=== PATIENT | female | born 1940 | race Caucasian/White ===

== ENCOUNTER → 2017-01-22 | Day surgery (SDC) | payer MEDICARE ==
[~2017-01-22] MED LIST: AMLO2.5T PO; AMLO5 PO; ARIC10TA PO; BUPIVACAINE/EPINEPHRINE 0.5% PF 10 ML VIAL ONE; CALC1TAB12 PO; CALC500T21 PO; CHOL20003 PO; COUM3TAB PO; COUM5TAB PO; CYAN1TAB24 PO; KETOROLAC TROMETHAMINE 30 MG/ML (IVP) VIAL IV PUSH ONE; LACTATED RINGER'S 1000 ML INJ 1,000 ML ONE; LIDOCAINE 1%/EPINEPHrine 1:100,000 SOLN 20 ML VIAL ONE; LISI-363 PO; LISI-515 PO; MEMA1TAB2 PO; METR-1 PO; MIDAZOLAM HCL 2 MG/2 ML VIAL ONE; MULT-65 PO; MULTTAB67 PO; NORC5TAB PO; OMEP20TA PO; PLAV75TA PO; PLAV75TA29 PO; PRIM50TA PO; PRIM50TA5 PO; PROPOFOL 200 MG/20 ML AMP IV ONE; SERT50 PO; TRAM50 PO; TRAM50TA PO; WARF-23 PO; ZOFR4TAB3 SL; ZOLO50TA PO; ceFAZolin 2 GM PREMIX 50 ML ONE; diphenhydrAMINE HCL 50 MG/ML VIAL ONE
--- NOTE | 2017-01-22 14:40 | TN ---
cc: SOTO FERNANDEZ M.D. DATE OF SURGERY: 01/22/2017 PREOPERATIVE DIAGNOSIS: Compression fracture of L2, subacute. POSTOPERATIVE DIAGNOSIS: Compression fracture of L2, subacute. PROCEDURE: Kyphoplasty of L2 and placement of a bone cement spacer. SURGEON: Soto Fernandez MD. ANESTHESIA: TIVA. ESTIMATED BLOOD LOSS: Minimal. INDICATIONS FOR THE PROCEDURE: This is a 76-year-old female who 5 weeks ago sustained an injury to her spine which was demonstrated as a compression fracture of L2. Investigative studies show evidence of a compression fracture at the L2 level as demonstrated on CT scan and a bone scan. She has had progressive pain and kyphotic deformity. She presents for surgical treatment. DESCRIPTION OF THE PROCEDURE IN DETAIL: The patient was brought to the operating and given limited sedation. She was rolled to a prone position on a radiolucent table. All pressure points were protected and the back was scrubbed with alcohol followed by Hibiclens followed by Chloraprep and draped sterilely. Antibiotics were given within one hour time window and a time-out was done. AP and lateral radiographic images were used to identify the L2 level and comparing to preoperative studies. A single balloon approach was utilized from the left side using the Kyphon System. Local anesthesia was utilized. A small incision was made. An awl was placed down through the pedicle and into the vertebral body at an oblique angle. A 20 mm Kyphon balloon was positioned. We had very good correction of the deformity. On the back table, methacrylate was mixed and after approximately 12 minutes it was injected. We could not proceed with any extravasation. The cement was allowed to harden. The tubes were removed. Intraoperative x-rays were obtained. The wound was irrigated, anesthetized and closed with 4-0 Vicryl followed by Dermabond. The patient was awakened and taken to the recovery room in satisfactory condition. Soto Fernandez MD [facility] [place] /2:26 PM /2:35 PM
== END | disposition home or self-care (01) ==
LOC: ESDC 11:09
PROVIDERS: ATTEND Orthopaedic Surgery Orthopaedic Surgery of the Spine
DX: S32.020A Wedge compression fracture of second lumbar vertebra, initial encounter for closed fracture (principal)
CPT/HCPCS: 01936; 22514; 72100; J0690; J1200; J1885; J2250; J3010; J7120

== ENCOUNTER 2017-02-13 08:49 | Emergency (ER) | payer MEDICARE ==
[~2017-02-13] VITALS: Ht 167.6 cm; Wt 80.0 kg
[~2017-02-13 08:49] MED LIST changes: -AMLO5 PO; -BUPIVACAINE/EPINEPHRINE 0.5% PF 10 ML VIAL ONE; -CALC1TAB12 PO; -CHOL20003 PO; -COUM3TAB PO; -COUM5TAB PO; -CYAN1TAB24 PO; -KETOROLAC TROMETHAMINE 30 MG/ML (IVP) VIAL IV PUSH ONE; -LACTATED RINGER'S 1000 ML INJ 1,000 ML ONE; -LIDOCAINE 1%/EPINEPHrine 1:100,000 SOLN 20 ML VIAL ONE; -LISI-515 PO; -MEMA1TAB2 PO; -METR-1 PO; -MIDAZOLAM HCL 2 MG/2 ML VIAL ONE; -MULTTAB67 PO; -NORC5TAB PO; -PLAV75TA29 PO; -PRIM50TA5 PO; -PROPOFOL 200 MG/20 ML AMP IV ONE; -TRAM50TA PO; -WARF-23 PO; -ZOFR4TAB3 SL; -ZOLO50TA PO; -ceFAZolin 2 GM PREMIX 50 ML ONE; -diphenhydrAMINE HCL 50 MG/ML VIAL ONE
[2017-02-13 08:54] VITALS: BP 200/118; PULSE 104; RESP 18; TEMP 98.2; O2SAT 95
[2017-02-13 09:15] VITALS: BP 205/93; PULSE 79; RESP 18; O2SAT 100
[2017-02-13] MEDS ORDERED: MULTTAB67 PO (09:19)
[2017-02-13] MEDS ORDERED: ZOLO50TA PO (09:19)
[2017-02-13] MEDS ORDERED: OMEP20TA PO (09:19)
[2017-02-13] MEDS ORDERED: AMLO2.5T PO (09:19)
[2017-02-13] MEDS ORDERED: CALC1TAB12 PO (09:19)
[2017-02-13] MEDS ORDERED: PRIM50TA5 PO (09:19)
[2017-02-13] MEDS ORDERED: LISI-515 PO (09:19)
[2017-02-13] MEDS ORDERED: PLAV75TA29 PO (09:19)
[2017-02-13] MEDS ORDERED: ARIC10TA PO (09:19)
[2017-02-13] MEDS ORDERED: TRAM50TA PO (09:19)
[2017-02-13] MEDS ORDERED: ONDANSETRON HCL 4 MG/2 ML VIAL IV ONE (09:45)
[2017-02-13] MEDS ORDERED: HYDROmorphone HCL PF 1 MG/ML VIAL IVS ONE (09:45)
[2017-02-13 10:11] LABS: AUTOMATED NEUTROPHIL # 6.7 TH/MM3 (1.8-7.7); BASOPHIL % 0.5 % (0.0-2.0); EOSINOPHIL # 0.1 TH/MM3 (0-0.4); EOSINOPHIL % 1.7 % (0.0-4.0); HEMATOCRIT 38.6 % (35.0-46.0); HEMO FLAGS DIFF FINAL; LYMPH % 8.7 % (9.0-44.0); LYMPHOCYTE # 0.7 TH/MM3 (1.0-4.8); MEAN CELL VOLUME 80.5 FL (80.0-100.0); MEAN CORPUSCULAR HEMOGLOBIN 26.8 PG (27.0-34.0); MEAN CORPUSCULAR HGB CONC 33.3 % (32.0-36.0); MONO % 4.8 % (0.0-8.0); NEUT % 84.3 % (16.0-70.0); PLATELET COUNT 270 TH/MM3 (150-450); RED BLOOD COUNT 4.79 MIL/MM3 (4.00-5.30); RED CELL DISTRIBUTION WIDTH 16.5 % (11.6-17.2); WHITE BLOOD COUNT 7.9 TH/MM3 (4.0-11.0)
--- NOTE | 2017-02-13 10:15 | PD ---
HPI Chief Complaint: Pain: Acute or Chronic Time Seen by Provider: 09:37 Travel History International Travel<30 days: No Contact w/Intl Traveler<30days: No Traveled to known affect area: No History of Present Illness HPI This patient has had daily chronic low midline back pain for 8 weeks now. She fell then and developed L2 compression fracture. 3 weeks ago she had kyphoplasty done. She says that didn't help the pain at all and she has chronic daily pain. She called the paramedics who brought her in today. She received 10 mg IV morphine in route and still is not relieving her pain. She denies fever or acute injury. No radiation of pain down the legs. No muscle weakness or sensory loss. She has chronic bladder incontinence but no retention issues. Pain is severe. Duration 8 weeks. No alleviating factors. She says that hydrocodone and tramadol she takes at home doesn't help. She saw her orthopedist 2 weeks ago which was one week after surgery. PFSH Past Medical History Hx Anticoagulant Therapy: Yes (PLAVIX ) Arthritis: Yes Asthma: No Atrial Fibrillation: Yes Autoimmune Disease: No Blood Disorders: No Anxiety: Yes Depression: Yes Heart Rhythm Problems: Yes (OCCASIONAL PALPITATIONS) Cancer: No Cardiac Catheterization: Yes Cardiovascular Problems: Yes (HTN , A-FIB ) High Cholesterol: Yes Chest Pain: Yes Congestive Heart Failure: No COPD: No Cerebrovascular Accident: Yes Coronary Artery Disease: Yes Diabetes: No Diminished Hearing: No Endocrine: No Gastrointestinal Disorders: Yes (barretts esophagus) GERD: Yes Glaucoma: No Genitourinary: No Headaches: Yes Hepatitis: No Hiatal Hernia: Yes Hypertension: Yes Immune Disorder: No Kidney Stones: No Musculoskeletal: Yes (CHRONIC BACK PAIN ) Neurologic: No Psychiatric: Yes Reproductive: No Respiratory: No Myocardial Infarction: Yes ([place] 09/1991) Renal Failure: No Seizures: No Sleep Apnea: Yes (OCCASIONAL) Thyroid Disease: No Ulcer: No Tetanus Vaccination: Unknown Influenza Vaccination: Yes ?: Not Menopausal: Yes : 3 Para: 3 Past Surgical History Abdominal Surgery: Yes AICD: No Appendectomy: Yes Body Medical Devices: cardiac stents Cardiac Surgery: Yes (bypass) Cholecystectomy: No Coronary Artery Bypass Graft: Yes (X1 1989) Coronary Stent: Yes (X 3) Ear Surgery: No Endocrine Surgery: No Eye Surgery: Yes (CATARACT ) Genitourinary Surgery: No Gynecologic Surgery: No Joint Replacement: Yes (BILATERAL KNEE/hip) Neurologic Surgery: Yes (L1-L2 SURGERY ) Oral Surgery: No Pacemaker: No Thoracic Surgery: No Tonsillectomy: Yes Other Surgery: Yes Social History Alcohol Use: No Tobacco Use: No Substance Use: No Allergies-Medications (Allergen,Severity, Reaction): Coded Allergies: Contrast Media (Verified Allergy, Severe, HIVES ,CLOSE UP THROAT, 02/13/17) Hydrocodone (Verified Allergy, Severe, N/V, 02/13/17) Iohexol (OMNIPAQUE) (Verified Allergy, Severe, pt needs premeds, 02/13/17) Percocet (Verified Allergy, Severe, 02/13/17) Sulfa (Verified Allergy, Severe, CHILLS-ABD PAIN, 02/13/17) Vicodin (Verified Allergy, Severe, N/V, 02/13/17) Reported Meds & Prescriptions Reported Meds & Active Scripts Active Calcium 500+D (Calcium/Vitamin D) 500 + Tab 500 + PO DAILY 30 Days Ultram (Tramadol HCl) 50 Mg Tab 50 Mg PO Q4H PRN Review of Systems General / Constitutional: No: Fever Eyes: No: Visual changes HENT: No: Headaches Cardiovascular: No: Chest Pain or Discomfort Respiratory: No: Shortness of Breath Gastrointestinal: No: Abdominal Pain Genitourinary: No: Dysuria Musculoskeletal: Positive: Pain Skin: No Rash Neurologic: No: Weakness Psychiatric: No: Depression Endocrine: No: Polydipsia Hematologic/Lymphatic: No: Easy Bruising Physical Exam Narrative GENERAL: Well-nourished, well-developed patient with back pain . SKIN: Focused skin assessment reveals no rash and nodules. Skin is Warm and dry. HEAD: Atraumatic. Normocephalic. EYES: Pupils equal and round. No scleral icterus. No injection or drainage. ENT: No nasal bleeding or discharge. Mucous membranes pink and moist. NECK: Trachea midline. No JVD. CARDIOVASCULAR: Regular rate and rhythm. No murmur appreciated. RESPIRATORY: No accessory muscle use. Clear to auscultation. Breath sounds equal bilaterally. GASTROINTESTINAL: Abdomen soft, non-tender, nondistended. Hepatic and splenic margins not palpable. MUSCULOSKELETAL: No obvious deformities. No clubbing. No cyanosis. No edema. I don't see any redness or swelling or bruising or muscle spasm on back exam. NEUROLOGICAL: Awake and alert. No obvious cranial nerve deficits. Motor grossly within normal limits. Normal speech. PSYCHIATRIC: Appropriate mood and affect; insight and judgment normal. Data Data Last Documented VS Vital Signs Date Time Temp Pulse Resp B/P Pulse Ox O2 Delivery O2 Flow Rate FiO2 02/13/17 09:15 79 18 205/93 100 Nasal Cannula 2 02/13/17 08:54 98.2 Orders Electrocardiogram (02/13/17 ) Iv Access Insert/Monitor (02/13/17 09:37) Complete Blood Count With Diff (02/13/17 09:37) Basic Metabolic Panel (Bmp) (02/13/17 09:37) Spine, Lumbar - Ltd (Ap & Lat) (02/13/17 ) Ondansetron Inj (Zofran Inj) (02/13/17 09:45) Hydromorphone Pf Inj (Dilaudid Pf Inj) (02/13/17 09:45) Labs Laboratory Tests Test 02/13/17 09:50 White Blood Count 7.9 TH/MM3 Red Blood Count 4.79 MIL/MM3 Hemoglobin 12.9 GM/DL Hematocrit 38.6 % Mean Corpuscular Volume 80.5 FL Mean Corpuscular Hemoglobin 26.8 PG Mean Corpuscular Hemoglobin 33.3 % Concent Red Cell Distribution Width 16.5 % Platelet Count 270 TH/MM3 Mean Platelet Volume 9.1 FL Neutrophils (%) (Auto) 84.3 % Lymphocytes (%) (Auto) 8.7 % Monocytes (%) (Auto) 4.8 % Eosinophils (%) (Auto) 1.7 % Basophils (%) (Auto) 0.5 % Neutrophils # (Auto) 6.7 TH/MM3 Lymphocytes # (Auto) 0.7 TH/MM3 Monocytes # (Auto) 0.4 TH/MM3 Eosinophils # (Auto) 0.1 TH/MM3 Basophils # (Auto) 0.0 TH/MM3 CBC Comment DIFF FINAL Differential Comment Sodium Level 136 MEQ/L Potassium Level 3.7 MEQ/L Chloride Level 99 MEQ/L Carbon Dioxide Level 28.5 MEQ/L Anion Gap 9 MEQ/L Blood Urea Nitrogen 9 MG/DL Creatinine 0.67 MG/DL Estimat Glomerular Filtration 85 ML/MIN Rate Random Glucose 99 MG/DL Calcium Level 9.2 MG/DL MDM Medical Decision Making Medical Screen Exam Complete: Yes Emergency Medical Condition: Yes Medical Record Reviewed: Yes Differential Diagnosis Post surgical pain, chronic pain, compression fracture Narrative Course I have reviewed the patient's electronic medical record. Reviewed her kyphoplasty note from 3 weeks ago. IV placed CBC is normal Metabolic profile is normal I reviewed her lumbar spine x-rays which show kyphoplasty at L2 and L1 compression fracture I don't see a neurologic deficit She is very hypertensive but is complaining of pain and did not take her antihypertensives today I gave her 1 mg IV Dilaudid and 4 g IV Zofran for symptom relief On recheck she feels improved. She is ambulatory here in the department Stable for outpatient follow-up with her primary physician and orthopedist Diagnosis Primary Impression: Compression fracture of L1 lumbar vertebra Qualified Code: S32.010A - Compression fracture of L1 lumbar vertebra, closed , initial encounter Additional Impression: Compression fracture of L2 lumbar vertebra Qualified Code: S32.020D - Compression fracture of L2 lumbar vertebra, with routine healing, subsequent encounter Additional Instructions: The patient was advised to follow up with their primary physician and orthopedist and return if they worsen. Med/Other Pt SpecificInfo: Other Disposition: 01 DISCHARGE HOME Condition: Stable Oliver Vega MD Feb 13, 2017 10:15
[2017-02-13 10:34] LABS: BICARBONATE 28.5 MEQ/L (21.0-32.0); POTASSIUM 3.7 MEQ/L (3.5-5.1)
--- NOTE | 2017-02-13 10:45 | RADRPT ---
EXAM DATE/TIME: 02/13/2017 10:16 [facility] COMPARISON: [facility] (AP & LAT), January 22, 2017, 12:10. INDICATIONS : Complains of back pain. MEDICAL HISTORY : None. SURGICAL HISTORY : Kyphoplasty. ENCOUNTER: Initial ACUITY: 1 month PAIN SCORE: 10/10 LOCATION: [facility] FINDINGS: There is evidence for prior vertebroplasty of L2. There is anterior wedging of L1 by approximately 43 % and bony structures are osteopenic. Degenerative changes are present to a significant degree at L5- S1. Chronic atherosclerotic calcifications are seen without any definite aneurysmal dilatations for t echnique. CONCLUSION: Anterior wedging of L1 and prior vertebroplasty of L2. KYoli Grimaldo MD on February 13, 2017 at 10:41 Board Certified Radiologist. This report was verified electronically.
--- NOTE | 2017-02-13 14:10 | EKG ---
Date Performed: 02/13/2017 Time Performed: 09:07:25 PTAGE: 76 years EKG: ATRIAL FIBRILLATION WITH CONTROLLED VENTRICULAR RESPONSE POOR INITIAL ANTERIOR FORCES IN V1 AND V2 WHICH IS PROBABLY NORMAL VARIANT Compared to previous tracing, atrial fibrillation is new. T he loss of R force in V2 compared to the previous tracing may be positional. ABNORMAL ECG PREVIOUS TRACING : 04/29/2016 20.40 DOCTOR: Ramon Schmidt Interpretating Date/Time 02/13/2017 14:08:24
[2017-03-12] MEDS ORDERED: CHOL20003 PO (09:50)
[2017-03-12] MEDS ORDERED: MEMA1TAB2 PO (09:50)
[2017-03-12] MEDS ORDERED: COUM5TAB PO (09:50)
[2017-03-12] MEDS ORDERED: CYAN1TAB24 PO (09:50)
== END 2017-02-13 12:12 | disposition home or self-care (01) ==
LOC: NEPC 08:49
DX: S32.010A Wedge compression fracture of first lumbar vertebra, initial encounter for closed fracture (principal); S32.020D Wedge compression fracture of second lumbar vertebra, subsequent encounter for fracture with routine healing; I48.91 Unspecified atrial fibrillation; I10 Essential (primary) hypertension; I25.10 Atherosclerotic heart disease of native coronary artery without angina pectoris; I25.2 Old myocardial infarction; Z98.890 Other specified postprocedural states; Z79.01 Long term (current) use of anticoagulants; Z86.73 Personal history of transient ischemic attack (TIA), and cerebral infarction without residual deficits; Z95.5 Presence of coronary angioplasty implant and graft
CPT/HCPCS: 72100; 80048; 85025; 93005; 96374; 96375; 99284; J1170; J2405

== ENCOUNTER → 2017-02-19 | Day surgery (SDC) | payer MEDICARE ==
[~2017-02-19] MED LIST changes: +AMLO5 PO; +CALC1TAB12 PO; -CALC500T21 PO; +CHOL20003 PO; +COUM3TAB PO; +COUM5TAB PO; +CYAN1TAB24 PO; -LISI-363 PO; +LISI-515 PO; +MEMA1TAB2 PO; +METR-1 PO; -MULT-65 PO; +MULTTAB67 PO; +NORC5TAB PO; -PLAV75TA PO; +PLAV75TA29 PO; -PRIM50TA PO; +PRIM50TA5 PO; -SERT50 PO; -TRAM50 PO; +TRAM50TA PO; +WARF-23 PO; +ZOFR4TAB3 SL; +ZOLO50TA PO
== END | disposition home or self-care (01) ==
LOC: ESDC 11:10
PROVIDERS: ATTEND Orthopaedic Surgery Orthopaedic Surgery of the Spine
DX: S32.010A Wedge compression fracture of first lumbar vertebra, initial encounter for closed fracture (principal); Z53.09 Procedure and treatment not carried out because of other contraindication; I48.91 Unspecified atrial fibrillation
CPT/HCPCS: 93005; G0463; 99211

== ENCOUNTER → 2017-02-26 | Day surgery (SDC) | payer MEDICARE ==
[~2017-02-26] MED LIST changes: +ACETAMINOPHEN/HYDROcodone 325 MG/5 MG TAB ONE; +BUPIVACAINE/EPINEPHRINE 0.5% PF 10 ML VIAL ONE; +KETOROLAC TROMETHAMINE 30 MG/ML (IVP) VIAL IV PUSH ONE; +LACTATED RINGER'S 1000 ML INJ 1,000 ML ONE; +LIDOCAINE 1%/EPINEPHrine 1:100,000 SOLN 20 ML VIAL ONE; +MIDAZOLAM HCL 2 MG/2 ML VIAL ONE; +PROPOFOL 200 MG/20 ML AMP IV ONE; +ceFAZolin 2 GM PREMIX 50 ML ONE
--- NOTE | 2017-02-26 14:13 | TN ---
cc: SOTO FERNANDEZ DATE OF SURGERY: 02/26/2017. PREOPERATIVE DIAGNOSIS: Compression fracture of L1. POSTOPERATIVE DIAGNOSIS: Compression fracture of L1. OPERATIVE PROCEDURE PERFORMED: Kyphoplasty of L1 and placement of bone cement spacer. SURGEON: Soto Fernandez MD. ANESTHESIA: TIVA. ESTIMATED BLOOD LOSS: Minimal. INDICATIONS FOR THE PROCEDURE: This patient is a 76-year-old female who has had a previous kyphoplasty at the L2 level and did very well. The patient developed increasing pain and studies showed evidence of a compression fracture developing at L1. The previous study showed evidence of only an acute fracture at the L2 level but now that she developed a fracture at that level she has had three weeks of conservative care and it is very painful. She presents now for surgical treatment. DESCRIPTION OF THE PROCEDURE IN DETAIL: The patient was brought to the operating room and given limited sedation. She was rolled to a prone position on a radiolucent table. All pressure points were checked. The back was scrubbed alcohol followed by Hibiclens followed Chloraprep and draped sterilely. Antibiotics were given within one hour time window and a time-out was done. AP and lateral radiographic images were used identifying the L1 level and compared to preoperative studies. A single balloon approach was utilized from the left side using the Kyphon system. Local anesthesia was utilized. A small incision was made with an awl placed down through the pedicle and into vertebral body at an oblique angle. A 20 mm Kyphon balloon was inflated. We had good correction of the deformity overall. On the back table, methyl methacrylate was mixed and after approximately 11 minutes was injected. We had minimal extravasation posteriorly. The cementing was stopped at that time. The cement was allowed to harden. The tubes were removed. Intraoperative x-rays were obtained. The wound was irrigated, anesthetized and closed with 4-0 Vicryl followed by Dermabond. The patient was awakened and taken to the recovery room in satisfactory condition. Soto Fernandez MD [facility] [place] /1:50 PM /1:59 PM
== END | disposition home or self-care (01) ==
LOC: ESDC 11:36
PROVIDERS: ATTEND Orthopaedic Surgery Orthopaedic Surgery of the Spine
DX: S32.010A Wedge compression fracture of first lumbar vertebra, initial encounter for closed fracture (principal)
CPT/HCPCS: 01936; 22514; 72100; J0690; J1885; J2250; J3010; J7120

== ENCOUNTER 2017-03-13 11:45 | Inpatient (IN) | payer MEDICARE ==
[~2017-03-13] VITALS: Ht 167.6 cm; Wt 65.0 kg
[2017-03-13] VITALS (7 sets, daily range): BP systolic 161–198; BP diastolic 72–89; PULSE 73–93; RESP 16–18; TEMP 97.6–100; O2SAT 95–100
[~2017-03-13 11:45] MED LIST changes: -ACETAMINOPHEN/HYDROcodone 325 MG/5 MG TAB ONE; -AMLO5 PO; -BUPIVACAINE/EPINEPHRINE 0.5% PF 10 ML VIAL ONE; -COUM3TAB PO; -KETOROLAC TROMETHAMINE 30 MG/ML (IVP) VIAL IV PUSH ONE; -LACTATED RINGER'S 1000 ML INJ 1,000 ML ONE; -LIDOCAINE 1%/EPINEPHrine 1:100,000 SOLN 20 ML VIAL ONE; -METR-1 PO; -MIDAZOLAM HCL 2 MG/2 ML VIAL ONE; -NORC5TAB PO; -PLAV75TA29 PO; -PROPOFOL 200 MG/20 ML AMP IV ONE; -TRAM50TA PO; -WARF-23 PO; -ZOFR4TAB3 SL; -ceFAZolin 2 GM PREMIX 50 ML ONE
[2017-03-13] MEDS ORDERED: MORPHINE SULFATE 4 MG/ML INJ IV PUSH ONE ×3 (12:45→17:45)
[2017-03-13] MEDS ORDERED: ONDANSETRON HCL 4 MG/2 ML VIAL IVP ONE (12:45)
[2017-03-13] MEDS ORDERED: SODIUM CHLORIDE 0.9% FLUSH 10 ML FLUSH IV FLUSH PRN ×2 (12:45→14:45)
[2017-03-13] MEDS ORDERED: SODIUM CHLOR 0.9% 1000 ML INJ 1,000 ML IV SCH (12:45)
[2017-03-13] MEDS ORDERED: WARF-23 PO (12:48)
--- NOTE | 2017-03-13 12:52 | PD ---
HPI Chief Complaint: Abdominal Pain Time Seen by Provider: 12:41 Travel History International Travel<30 days: No Contact w/Intl Traveler<30days: No Traveled to known affect area: No History of Present Illness HPI 76-year-old female here by private vehicle with for evaluation of lower abdominal pain and diarrhea. Symptoms started yesterday evening with lower abdominal pain that the patient describes as sharp. She reports having 3 episodes of was bowel movements since then. For the last 3 days the patient has had decreased appetite and has had nothing to eat, only drinking water. She has not vomited. History of appendectomy. No other abdominal surgeries. No urinary symptoms. Recent history of L1 compression fracture with kyphoplasty on 02/26/17. PFSH Past Medical History Hx Anticoagulant Therapy: Yes (coumadin) Arthritis: Yes Asthma: No Atrial Fibrillation: Yes Autoimmune Disease: No Blood Disorders: No Anxiety: Yes Depression: Yes Heart Rhythm Problems: Yes (OCCASIONAL PALPITATIONS AFIB) Cancer: No Cardiac Catheterization: Yes Cardiovascular Problems: Yes (htn on meds, [place] with 3 stents) High Cholesterol: Yes Chest Pain: Yes Congestive Heart Failure: No COPD: No Cerebrovascular Accident: Yes (cva) Coronary Artery Disease: Yes Diabetes: No Diminished Hearing: No Endocrine: No Gastrointestinal Disorders: Yes (barretts esophagus) GERD: Yes Glaucoma: No Genitourinary: No Headaches: Yes Hepatitis: No Hiatal Hernia: Yes Herniated Disk: Yes Hypertension: Yes Immune Disorder: No Kidney Stones: No Musculoskeletal: Yes (CHRONIC BACK PAIN ) Neurologic: No Psychiatric: Yes Reproductive: No Respiratory: No Immunizations Current: Yes Myocardial Infarction: Yes ([place] 09/1991) Renal Failure: No Seizures: No Sleep Apnea: Yes (OCCASIONAL) Thyroid Disease: No Ulcer: No Tetanus Vaccination: < 5 Years Influenza Vaccination: Yes ?: Not Menopausal: Yes : 3 Para: 3 Past Surgical History Abdominal Surgery: Yes AICD: No Appendectomy: Yes Body Medical Devices: cardiac stents Cardiac Surgery: Yes (bypass) Cholecystectomy: No Coronary Artery Bypass Graft: Yes (X1 1989) Coronary Stent: Yes (X 3) Ear Surgery: No Endocrine Surgery: No Eye Surgery: Yes (CATARACT ) Genitourinary Surgery: No Gynecologic Surgery: No Joint Replacement: Yes (BILATERAL KNEE/hip) Neurologic Surgery: Yes (L1-L2 SURGERY ) Oral Surgery: No Pacemaker: No Thoracic Surgery: No Tonsillectomy: Yes Other Surgery: Yes Social History Alcohol Use: No Tobacco Use: No Substance Use: No Allergies-Medications (Allergen,Severity, Reaction): Coded Allergies: Contrast Media (Verified Allergy, Severe, HIVES ,CLOSE UP THROAT, 03/13/17) Hydrocodone (Verified Allergy, Severe, N/V, 03/13/17) Iohexol (OMNIPAQUE) (Verified Allergy, Severe, pt needs premeds, 03/13/17) Percocet (Verified Allergy, Severe, 03/13/17) Sulfa (Verified Allergy, Severe, CHILLS-ABD PAIN, 03/13/17) Vicodin (Verified Allergy, Severe, N/V, 03/13/17) Reported Meds & Prescriptions Reported Meds & Active Scripts Active Reported Warfarin 5 Mg Tab 5 Mg PO DAILY D3 (Cholecalciferol) 2,000 Unit Cap 1 Cap PO DAILY B12 (Cyanocobalamin) 1,000 Mcg Tab Unknown Dose PO DAILY Memantine 10 Mg Tab 40 Mg PO DAILY Aricept (Donepezil) 10 Mg Tab 10 Mg PO HS Amlodipine (Amlodipine Besylate) 2.5 Mg Tab 5 Mg PO BID Calcium 500 +D (Calcium Carbonate-Cholecalciferol) 500-400 Mg-Unit Tab 1 Tab PO BID Lisinopril 20 Mg Tab 20 Mg PO BID Primidone 50 Mg Tab 50 Mg PO BID Omeprazole 20 Mg Tab 20 Mg PO DAILY Zoloft (Sertraline HCl) 50 Mg Tab 50 Mg PO BID Multiple Vitamin 1 Tab 1 Tab PO DAILY Review of Systems Except as stated in HPI: all other systems reviewed are Neg Physical Exam Narrative GENERAL: Well-developed, well-nourished, comfortable, no acute distress. SKIN: Focused skin assessment warm/dry. No rash. HEAD: Atraumatic. Normocephalic. EYES: Pupils equal and round. No scleral icterus. No injection or drainage. ENT: Mucous membranes pink and moist. NECK: Trachea midline. No JVD. CARDIOVASCULAR: Regular rate and rhythm. RESPIRATORY: No accessory muscle use. Clear to auscultation. Breath sounds equal bilaterally. GASTROINTESTINAL: Abdomen soft, nondistended. Mild suprapubic tenderness without peritoneal signs. Rest of abdomen is mildly tender. No rebound or guarding. Normal bowel sounds. No hernias. MUSCULOSKELETAL: No obvious deformities. No clubbing. No cyanosis. No edema. NEUROLOGICAL: Awake and alert. No obvious cranial nerve deficits. Motor grossly within normal limits. Normal speech. PSYCHIATRIC: Appropriate mood and affect; insight and judgment normal. Data Data Last Documented VS Vital Signs Date Time Temp Pulse Resp B/P Pulse Ox O2 Delivery O2 Flow Rate FiO2 03/13/17 14:32 81 18 198/85 97 Room Air 03/13/17 12:00 97.6 Orders Complete Blood Count With Diff (03/13/17 12:45) Comprehensive Metabolic Panel (03/13/17 12:45) Lipase (03/13/17 12:45) Prothrombin Time / Inr (Pt) (03/13/17 12:45) Act Partial Throm Time (Ptt) (03/13/17 12:45) Urinalysis - C+S If Indicated (03/13/17 12:45) Ct Abd/Pel W/O Iv Contrast (03/13/17 12:45) Iv Access Insert/Monitor (03/13/17 12:45) Ecg Monitoring (03/13/17 12:45) Oximetry (03/13/17 12:45) Ondansetron Inj (Zofran Inj) (03/13/17 12:45) Sodium Chlor 0.9% 1000 Ml Inj (Ns 1000 M (03/13/17 12:45) Sodium Chloride 0.9% Flush (Ns Flush) (03/13/17 12:45) Morphine Inj (Morphine Inj) (03/13/17 12:45) Cath For Specimen (03/13/17 12:49) Lactic Acid (03/13/17 13:32) C Diff Toxin Pcr (03/13/17 13:32) Urine Culture (03/13/17 13:10) Ceftriaxone Inj (Rocephin Inj) (03/13/17 13:45) Morphine Inj (Morphine Inj) (03/13/17 14:45) Ciprofloxacin 400 Mg Premix (Cipro 400 M (03/13/17 14:45) Metronidazole 500 Mg Inj (Flagyl 500 Mg (03/13/17 14:45) Potassium Chlor 20 Meq Premix (Kcl 20 Me (03/13/17 14:45) Labs Laboratory Tests Test 03/13/17 03/13/17 03/13/17 12:10 13:10 13:57 White Blood Count 22.3 TH/MM3 Red Blood Count 5.54 MIL/MM3 Hemoglobin 14.4 GM/DL Hematocrit 44.5 % Mean Corpuscular Volume 80.4 FL Mean Corpuscular Hemoglobin 26.1 PG Mean Corpuscular Hemoglobin 32.5 % Concent Red Cell Distribution Width 18.5 % Platelet Count 266 TH/MM3 Mean Platelet Volume 9.4 FL Neutrophils (%) (Auto) 92.3 % Lymphocytes (%) (Auto) 4.9 % Monocytes (%) (Auto) 2.6 % Eosinophils (%) (Auto) 0.1 % Basophils (%) (Auto) 0.1 % Neutrophils # (Auto) 20.6 TH/MM3 Lymphocytes # (Auto) 1.1 TH/MM3 Monocytes # (Auto) 0.6 TH/MM3 Eosinophils # (Auto) 0.0 TH/MM3 Basophils # (Auto) 0.0 TH/MM3 CBC Comment DIFF FINAL Differential Comment Prothrombin Time 64.3 SEC Prothromb Time International 5.4 RATIO Ratio Activated Partial 36.5 SEC Thromboplast Time Sodium Level 138 MEQ/L Potassium Level 2.9 MEQ/L Chloride Level 98 MEQ/L Carbon Dioxide Level 25.4 MEQ/L Anion Gap 15 MEQ/L Blood Urea Nitrogen 18 MG/DL Creatinine 1.00 MG/DL Estimat Glomerular Filtration 54 ML/MIN Rate Random Glucose 118 MG/DL Calcium Level 9.8 MG/DL Total Bilirubin 0.5 MG/DL Aspartate Amino Transf 19 U/L (AST/SGOT) Alanine Aminotransferase 18 U/L (ALT/SGPT) Alkaline Phosphatase 135 U/L Total Protein 7.9 GM/DL Albumin 3.7 GM/DL Lipase 85 U/L Urine Collection Type CATH Urine Color DARK-YELLOW Urine Turbidity CLOUDY Urine pH 5.5 Urine Specific Aline 1.024 Urine Protein 100 mg/dL Urine Glucose (UA) NEG mg/dL Urine Ketones 15 mg/dL Urine Occult Blood NEG Urine Nitrite POS Urine Bilirubin NEG Urine Leukocyte Esterase SMALL Urine WBC 20-24 /hpf Urine Squamous Epithelial 0-5 /hpf Cells Urine Bacteria MANY /hpf Urine Hyaline Casts 0-2 /lpf Microscopic Urinalysis Comment CULTURE INDICATED Lactic Acid Level 1.3 mmol/L MDM Medical Decision Making Medical Screen Exam Complete: Yes Emergency Medical Condition: Yes Differential Diagnosis Colitis, diverticulitis, UTI, cystitis, mesenteric ischemia Narrative Course Initial vital signs show heart rate 93, blood pressure 176/86, pulse ox 95% on room air, oral temp of 97.6F. CBC shows WBC 22.3, hemoglobin 14.4, hematocrit 44.3, platelets 266, neutrophils 92.3%. CMP is remarkable for potassium 2.9, otherwise essentially unremarkable. Lactic acid is 1.3. UA suggestive of UTI. CT abdomen pelvis: CONCLUSION: 1. Diverticulosis of the sigmoid colon with wall thickening suggestive of mild diverticulitis. 2. Cholelithiasis. 3. No renal calculi or hydronephrosis. Patient and the patient's significant other were made aware of all findings. She was given a dose of Rocephin after her UA resulted. She was started on Cipro and Flagyl after her CT abdomen pelvis resulted. She is still complaining of abdominal pain and was given a second dose of morphine. There are no peritoneal signs on exam. Also potassium has been ordered parenterally. Given ongoing pain, age, and hypokalemia, the patient will be admitted for further treatment and evaluation of acute diverticulitis. Case discussed with hospitalist Dr. Herron who will admit the patient to his service. Diagnosis Primary Impression: Acute diverticulitis Additional Impressions: UTI (urinary tract infection) Qualified Code: N39.0 - Urinary tract infection with hematuria, site unspecified Hypokalemia Intractable abdominal pain Scooter Ricardo MD March 13, 2017 12:52
[2017-03-13 12:56] LABS: AUTOMATED NEUTROPHIL # 20.6 TH/MM3 (1.8-7.7); BASOPHIL % 0.1 % (0.0-2.0); EOSINOPHIL % 0.1 % (0.0-4.0); HEMATOCRIT 44.5 % (35.0-46.0); LYMPH % 4.9 % (9.0-44.0); LYMPHOCYTE # 1.1 TH/MM3 (1.0-4.8); MEAN CELL VOLUME 80.4 FL (80.0-100.0); MEAN CORPUSCULAR HEMOGLOBIN 26.1 PG (27.0-34.0); MEAN CORPUSCULAR HGB CONC 32.5 % (32.0-36.0); MONO % 2.6 % (0.0-8.0); NEUT % 92.3 % (16.0-70.0); PLATELET COUNT 266 TH/MM3 (150-450); RED BLOOD COUNT 5.54 MIL/MM3 (4.00-5.30); RED CELL DISTRIBUTION WIDTH 18.5 % (11.6-17.2); WHITE BLOOD COUNT 22.3 TH/MM3 (4.0-11.0)
[2017-03-13 13:01] LABS: HEMO FLAGS DIFF FINAL
[2017-03-13 13:10] LABS: APTT (PATIENT) 36.5 SEC (24.3-30.1); INTERNATIONAL NORMALIZED RATIO 5.4 RATIO; PROTHROMBIN TIME - PATIENT 64.3 SEC (9.8-11.6)
[2017-03-13 13:17] LABS: ALKALINE PHOSPHATASE 135 U/L (45-117); ALT (GPT) 18 U/L (10-53); ANION GAP 15 MEQ/L (5-15); AST (GOT) 19 U/L (15-37); BICARBONATE 25.4 MEQ/L (21.0-32.0); BLOOD UREA NITROGEN 18 MG/DL (7-18); CHLORIDE 98 MEQ/L (98-107); GLOMERULAR FILTRATION RATE 54 ML/MIN (>89); SODIUM (NA) 138 MEQ/L (136-145); TOTAL BILIRUBIN ADULT 0.5 MG/DL (0.2-1.0)
[2017-03-13 13:19] LABS: POTASSIUM 2.9 MEQ/L (3.5-5.1)
[2017-03-13 13:28] LABS: BLOOD, URINE NEG (NEG); GLUCOSE,URINE NEG (NEG); KETONE, URINE 15 mg/dL (NEG); PH, URINE 5.5 (5.0-8.5)
[2017-03-13 13:33] LABS: NITRITE,URINE POS (NEG)
[2017-03-13 13:34] LABS: METHOD OF COLLECTION CATH; URINE COLOR DARK-YELLOW (YELLW/STRAW)
[2017-03-13 13:35] LABS: BACTERIA, URINE MANY /hpf
[2017-03-13 13:36] LABS: COMMENT (UR) CULTURE INDICATED; CULTURE IF INDICATED CULTURE INDICATED; HYALINE CAST, URINE 0-2 /lpf (RARE); SQUAMOUS EPITHELIAL CELL URINE 0-5 /hpf (0-5)
[2017-03-13] MEDS ORDERED: cefTRIAXone INJ 1,000 MG in SODIUM CHLORIDE 0.9% INJ 100 ML IV ONE (13:45)
--- NOTE | 2017-03-13 14:31 | RADHPO ---
EXAM DATE/TIME: 03/13/2017 14:06 [facility] COMPARISON: No previous studies available for comparison. INDICATIONS : Back pain. ORAL CONTRAST: No oral contrast ingested. RADIATION DOSE: 5.46 CTDIvol (mGy) MEDICAL HISTORY : Cardiovascular disease. Hernia, hiatal. SURGICAL HISTORY : Appendectomy. ENCOUNTER: Initial ACUITY: 1 day PAIN SCALE: 5/10 LOCATION: Bilateral back TECHNIQUE: Volumetric scanning of the abdomen and pelvis was performed. Using automated exposure control and ad justment of the mA and/or kV according to patient size, radiation dose was kept as low as reasonably achievable to obtain optimal diagnostic quality images. FINDINGS: LOWER LUNGS: The visualized lower lungs are clear. LIVER: Homogeneous density without lesion. There is no dilation of the biliary tree. There are small calcif ied gallstones. SPLEEN: Normal size without lesion. PANCREAS: Within normal limits. KIDNEYS: Normal in size and shape. There is no mass, stone, or hydronephrosis. ADRENAL GLANDS: Within normal limits. VASCULAR: There is no aortic aneurysm. BOWEL/MESENTERY: Diverticulosis of the sigmoid colon with wall thickening likely representing diverticulitis. There i s no free intraperitoneal air or fluid. ABDOMINAL WALL: Within normal limits. RETROPERITONEUM: There is no lymphadenopathy. BLADDER: No wall thickening or mass. REPRODUCTIVE: Within normal limits. INGUINAL: There is no lymphadenopathy or hernia. MUSCULOSKELETAL: Bilateral hip prostheses. Kyphoplasty cement within upper lumbar vertebral bodies. CONCLUSION: 1. Diverticulosis of the sigmoid colon with wall thickening suggestive of mild diverticulitis. 2. Cholelithiasis. 3. No renal calculi or hydronephrosis. Ivan Lucas MD on March 13, 2017 at 14:27 Board Certified Radiologist. This report was verified electronically.
[2017-03-13] MEDS ORDERED: MORPHINE SULFATE 4 MG/ML INJ IV PRN (14:45)
[2017-03-13] MEDS ORDERED: metroNIDAZOLE 500 MG INJ 100 ML IV ONE (14:45)
[2017-03-13] MEDS ORDERED: MORPHINE SULFATE 4 MG/ML INJ IV PUSH PRN (14:45)
[2017-03-13] MEDS ORDERED: CIPROFLOXACIN 400 MG PREMIX 200 ML IV ONE (14:45)
[2017-03-13] MEDS: POTASSIUM CHLOR 20 MEQ PREMIX 100 ML IV SCH ×2 (14:53→17:28)
[2017-03-13] MEDS: D5-1/2 NS + KCL 20 MEQ INJ 1,000 ML IV SCH (16:02)
[2017-03-13] MEDS: ENALAPRILAT 1.25 MG/ML VIAL IV PUSH PRN (17:35)
--- NOTE | 2017-03-13 17:35 | HHI.HP ---
HPI Service [facility] Primary Care Physician Non-Staff Admission Diagnosis acute diverticulitis, hypokalemia, intractable abdominal pain Diagnoses: Chief Complaint: Abdominal pain and loose stool Travel History International Travel<30 Days: No Contact w/Intl Traveler <30 Da: No Traveled to Known Affected Are: No History of Present Illness 76 years old female with past medical history of diverticulitis A. 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 No chest pain short of breath no sore throat no nasal congestion. Patient told me she had an episode of diverticulitis in the past. No history of CHF no edema orthopnea or PND. I discussed with the ED physician patient was given a dose of Cipro and Flagyl, she was also found to have a positive UA but she did not complain of dysuria Review of Systems All systems reviewed and was positive for what is mentioned in history of present illness otherwise negative Past Family Social History Past Medical History As in history of present illness Past Surgical History As in history of present illness Allergies: Coded Allergies: Contrast Media (Verified Allergy, Severe, HIVES ,CLOSE UP THROAT, 03/13/17) Hydrocodone (Verified Allergy, Severe, N/V, 03/13/17) Iohexol (OMNIPAQUE) (Verified Allergy, Severe, pt needs premeds, 03/13/17) Percocet (Verified Allergy, Severe, 03/13/17) Sulfa (Verified Allergy, Severe, CHILLS-ABD PAIN, 03/13/17) Vicodin (Verified Allergy, Severe, N/V, 03/13/17) Family History No history of colon cancer in the family Social History Denied tobacco alcohol or illicit drug abuse Physical Exam Vital Signs Vital Signs Date Time Temp Pulse Resp B/P Pulse Ox O2 Delivery O2 Flow Rate FiO2 03/13/17 16:47 73 18 195/72 96 Room Air 03/13/17 14:32 81 18 198/85 97 Room Air 03/13/17 13:26 93 18 176/86 95 Room Air 03/13/17 13:25 97 Room Air 03/13/17 12:00 97.6 16 163/89 100 Physical Exam GENERAL: This is a well-nourished, well-developed patient, in moderate distress due to abdominal pain SKIN: No rashes, warm and dry HEAD: Atraumatic. Normocephalic. EYES: Pupils equal round and reactive. Extraocular motions intact. No scleral icterus. ENT: Nose without bleeding, or drainage, Airway patent. NECK: Trachea midline. Supple CARDIOVASCULAR: Regular rate and rhythm without murmurs, gallops, or rubs. RESPIRATORY: Fair air entry bilaterally. No wheezes, rales, or rhonchi. GASTROINTESTINAL: Abdomen soft, positive tenderness mostly on the mid and lower abdomen, nondistended. Positive bowel sounds MUSCULOSKELETAL: Extremities without clubbing, cyanosis, or edema. Pedal pulses appreciated NEUROLOGICAL: Awake and alert. Moves all extremity. Normal speech.no focal neurological deficit Laboratory Laboratory Tests Test 03/13/17 03/13/17 03/13/17 12:10 13:10 13:57 White Blood Count 22.3 Red Blood Count 5.54 Hemoglobin 14.4 Hematocrit 44.5 Mean Corpuscular Volume 80.4 Mean Corpuscular Hemoglobin 26.1 Mean Corpuscular Hemoglobin 32.5 Concent Red Cell Distribution Width 18.5 Platelet Count 266 Mean Platelet Volume 9.4 Neutrophils (%) (Auto) 92.3 Lymphocytes (%) (Auto) 4.9 Monocytes (%) (Auto) 2.6 Eosinophils (%) (Auto) 0.1 Basophils (%) (Auto) 0.1 Neutrophils # (Auto) 20.6 Lymphocytes # (Auto) 1.1 Monocytes # (Auto) 0.6 Eosinophils # (Auto) 0.0 Basophils # (Auto) 0.0 CBC Comment DIFF FINAL Differential Comment Prothrombin Time 64.3 Prothromb Time International 5.4 Ratio Activated Partial 36.5 Thromboplast Time Sodium Level 138 Potassium Level 2.9 Chloride Level 98 Carbon Dioxide Level 25.4 Anion Gap 15 Blood Urea Nitrogen 18 Creatinine 1.00 Estimat Glomerular Filtration 54 Rate Random Glucose 118 Calcium Level 9.8 Total Bilirubin 0.5 Aspartate Amino Transf 19 (AST/SGOT) Alanine Aminotransferase 18 (ALT/SGPT) Alkaline Phosphatase 135 Total Protein 7.9 Albumin 3.7 Lipase 85 Urine Collection Type CATH Urine Color DARK-YELLOW Urine Turbidity CLOUDY Urine pH 5.5 Urine Specific [place] 1.024 Urine Protein 100 Urine Glucose (UA) NEG Urine Ketones 15 Urine Occult Blood NEG Urine Nitrite POS Urine Bilirubin NEG Urine Leukocyte Esterase SMALL Urine WBC 20-24 Urine Squamous Epithelial 0-5 Cells Urine Bacteria MANY Urine Hyaline Casts 0-2 Microscopic Urinalysis Comment CULTURE INDICATED Lactic Acid Level 1.3 Date/Time Procedure Status Source Growth 03/13/17 13:10 Urine Culture Received Urine Catheterized Urine Pending Result Diagram: 03/13/17 1210 03/13/17 1210 Imaging Last Impressions Abdomen/Pelvis CT 03/13/17 1245 Signed Impressions: Service Date/Time: Wednesday, March 13, 2017 14:06 - CONCLUSION: 1. Diverticulosis of the sigmoid colon with wall thickening suggestive of mild diverticulitis. 2. Cholelithiasis. 3. No renal calculi or hydronephrosis. Ivan Lucas MD Assessment and Plan Assessment and Plan 76 years old female admitted with acute abdominal pain with loose stool, CT abdomen showed diverticulosis with diverticulitis Sepsis (tachycardia heart rate 93, leukocytosis 22K, bandemia 93%, hypothermia 97.6F) C due to diverticulitis Diverticulosis with acute diverticulitis Leukocytosis with left shift Uncontrolled hypertension Hypokalemia 2.9 Positive UA asymptomatic bacteriuria H/O coronary artery disease/[place]/stenting and CABG History of CVA A. fib on Coumadin History of dementia, DVT prophylaxis patient on Coumadin INR therapeutic Plan: Admit to inpatient O2, morphine for pain control, nothing by mouth except meds, iv fluid with close monitoring for sign of overload Started on one dose of Rocephin then Cipro and Flagyl iv will continue on this Check blood culture Stool for C. difficile, ova parasite WBC CBC BMP in a.m. Resume lisinopril and amlodipine, Vasotec iv as needed to control blood pressure Continue Coumadin with INR monitoring Discussed Condition With Patient her in ED physician Physician Certification 2 Midnight Certification Type: Admission for Inpatient Services Order for Inpatient Services The services are ordered in accordance with Medicare regulations or non- Medicare payer requirements, as applicable. In the case of services not specified as inpatient-only, they are appropriately provided as inpatient services in accordance with the 2-midnight benchmark. Estimated LOS (days): 2 days is the estimated time the patient will need to remain in the hospital, assuming treatment plan goals are met and no additional complications. Post-Hospital Plan: Not yet determined Samanta Herron MD March 13, 2017 17:35
[2017-03-13] MEDS: SODIUM CHLORIDE 0.9% FLUSH 10 ML FLUSH IV FLUSH SCH (20:48)
[2017-03-13] MEDS: MORPHINE SULFATE 4 MG/ML INJ IV PRN (20:49)
[2017-03-13 21:23] LABS: INDIRECT BILIRUBIN 0.3 MG/DL (0.0-0.8); TOTAL BILIRUBIN ADULT 0.4 MG/DL (0.2-1.0)
[2017-03-13] MEDS: DONEPEZIL HCL 5 MG TAB PO SCH (21:35)
[2017-03-13] MEDS: SERTRALINE HCL 50 MG TAB PO SCH (21:35)
[2017-03-13] MEDS: LISINOPRIL 20 MG TAB PO SCH (21:36)
[2017-03-13] MEDS: amLODIPine BESYLATE 5 MG TAB PO SCH (21:36)
[2017-03-13] MEDS: metroNIDAZOLE 500 MG INJ 100 ML IV SCH (23:29)
[2017-03-14 00:17] VITALS: BP 171/68; PULSE 68; RESP 16; TEMP 99.5; O2SAT 96
[2017-03-14] MEDS: MORPHINE SULFATE 4 MG/ML INJ IV PRN ×3 (00:48→20:45)
[2017-03-14] MEDS: CIPROFLOXACIN 400 MG PREMIX 200 ML IV SCH ×2 (02:49→14:18)
[2017-03-14] MEDS: D5-1/2 NS + KCL 20 MEQ INJ 1,000 ML IV SCH ×2 (04:04→16:26)
[2017-03-14 06:25] LABS: AUTOMATED NEUTROPHIL # 16.3 TH/MM3 (1.8-7.7); EOSINOPHIL % 0.1 % (0.0-4.0); HEMATOCRIT 36.1 % (35.0-46.0); LYMPHOCYTE # 0.9 TH/MM3 (1.0-4.8); MEAN CELL VOLUME 80.7 FL (80.0-100.0); MEAN CORPUSCULAR HEMOGLOBIN 26.5 PG (27.0-34.0); MEAN CORPUSCULAR HGB CONC 32.8 % (32.0-36.0); MONO % 5.3 % (0.0-8.0); NEUT % 89.6 % (16.0-70.0); PLATELET COUNT 200 TH/MM3 (150-450); RED BLOOD COUNT 4.47 MIL/MM3 (4.00-5.30); WHITE BLOOD COUNT 18.2 TH/MM3 (4.0-11.0)
[2017-03-14 06:37] LABS: HEMO FLAGS DIFF FINAL
[2017-03-14 07:02] LABS: BICARBONATE 25.1 MEQ/L (21.0-32.0); POTASSIUM 3.7 MEQ/L (3.5-5.1)
[2017-03-14 08:00] VITALS: BP 130/76; PULSE 84; RESP 17; TEMP 98.1; O2SAT 95
[2017-03-14] MEDS: metroNIDAZOLE 500 MG INJ 100 ML IV SCH ×3 (08:00→23:53)
[2017-03-14] MEDS ORDERED: MEMANTINE HCL 10 MG TAB PO SCH (09:00)
[2017-03-14 09:45] LABS: PROTHROMBIN TIME - PATIENT GREATER THAN 180.0 SEC (9.8-11.6)
[2017-03-14 09:47] LABS: INTERNATIONAL NORMALIZED RATIO 14.8 RATIO
[2017-03-14] MEDS ORDERED: PNEUMOCOCCAL POLYVALENT INJ 25 MCG/0.5 ML SYR IM ONE (10:00)
--- NOTE | 2017-03-14 10:23 | HHI.PR ---
Subjective Remarks I was told by the nurse patient refusing her lab work and iv antibiotic she seemed it's okay to take pills I saw the patient she told me she is disappointed because she wants to go home she doesn't want to stay at the hospital, I explained to her that in her condition iv antibiotic it's was recommended because I just of system is not working well, so she understood and she agreed to take her iv antibiotic. She stated the pain is there but it's much less, her white blood count dropped from 22,000-18,000 She is afebrile today, her INR came back today 14 we will repeat a to repeat to rule out any at her but if they come back with the same result we will give her a dose of vitamin K, no obvious signs of bleeding Objective Vitals Vital Signs Date Time Temp Pulse Resp B/P Pulse Ox O2 Delivery O2 Flow Rate FiO2 03/14/17 08:00 98.1 84 17 130/76 95 03/14/17 05:26 03/14/17 00:17 99.5 68 16 171/68 96 03/13/17 21:42 100.0 86 18 161/83 95 03/13/17 17:40 73 18 187/75 98 Room Air 03/13/17 16:47 73 18 195/72 96 Room Air 03/13/17 14:32 81 18 198/85 97 Room Air 03/13/17 13:26 93 18 176/86 95 Room Air 03/13/17 13:25 97 Room Air 03/13/17 12:00 97.6 16 163/89 100 I/O 03/13/17 03/13/17 03/13/17 03/14/17 03/14/17 03/14/17 07:00 15:00 23:00 07:00 15:00 23:00 Intake Total 1005 ml 0 ml Balance 1005 ml 0 ml Intake Oral 0 ml IV Total 1005 ml # Voids 1 3 # Bowel Movements 1 Result Diagram: 03/14/17 0545 03/14/17 0545 Objective Remarks - GENERAL: This is a well-nourished, well-developed patient, in moderate distress due to abdominal pain SKIN: No rashes, warm and dry HEAD: Atraumatic. Normocephalic. EYES: Pupils equal round and reactive. Extraocular motions intact. No scleral icterus. ENT: Nose without bleeding, or drainage, Airway patent. NECK: Trachea midline. Supple CARDIOVASCULAR: Regular rate and rhythm without murmurs, gallops, or rubs. RESPIRATORY: Fair air entry bilaterally. No wheezes, rales, or rhonchi. GASTROINTESTINAL: Abdomen soft, less tenderness today, nondistended. Positive bowel sounds MUSCULOSKELETAL: Extremities without clubbing, cyanosis, or edema. Pedal pulses appreciated NEUROLOGICAL: Awake and alert. Moves all extremity. Normal speech.no focal neurological deficit A/P Assessment and Plan 76 years old female admitted with acute abdominal pain with loose stool, CT abdomen showed diverticulosis with diverticulitis Sepsis (at admission tachycardia heart rate 93, leukocytosis 22K, bandemia 93%, hypothermia 97.6F) C due to diverticulitis Diverticulosis with acute diverticulitis Leukocytosis with left shift> improved 24,000-18,000 Uncontrolled hypertension> improved Supratherapeutic INR 5.2> increased to 14 today will repeat to rule out lab error Hypokalemia 2.9> improved with replacement UTI without dysuria H/O coronary artery disease/[place]/stenting and CABG History of CVA A. fib on Coumadin History of dementia, DVT prophylaxis patient on Coumadin INR therapeutic Plan: Repeat INR, if continued to be 14 will give dose of vitamin K 5 mg subcutaneous and repeat INR in a.m. O2, morphine for pain control, nothing by mouth except meds, iv fluid with close monitoring for sign of overload Started on one dose of Rocephin then Cipro and Flagyl iv will continue on this Follow blood culture Stool for C. difficile, ova parasite WBC CBC BMP monitoring Resume lisinopril and amlodipine, Vasotec iv as needed to control blood pressure Continue Coumadin with INR monitoring Samanta Herron MD March 14, 2017 10:23
[2017-03-14 11:04] LABS: PROTHROMBIN TIME - PATIENT GREATER THAN 180.0 SEC (9.8-11.6)
[2017-03-14 11:10] LABS: INTERNATIONAL NORMALIZED RATIO GREATER THAN 16.7 RATIO
[2017-03-14] MEDS: SODIUM CHLORIDE 0.9% FLUSH 10 ML FLUSH IV FLUSH SCH ×2 (11:43→20:46)
[2017-03-14] MEDS ORDERED: PHYTONADIONE 10 MG/ML VIAL SQ ONE (12:00)
[2017-03-14] MEDS: amLODIPine BESYLATE 5 MG TAB PO SCH ×2 (12:10→20:46)
[2017-03-14] MEDS: LISINOPRIL 20 MG TAB PO SCH ×2 (12:10→20:46)
[2017-03-14] MEDS: SERTRALINE HCL 50 MG TAB PO SCH ×2 (12:10→20:45)
[2017-03-14] MEDS: MEMANTINE HCL 5 MG TAB PO SCH (12:10)
[2017-03-14 12:18] LABS: HEMATOCRIT 39.6 % (35.0-46.0); REVIEW FLAG FINAL
[2017-03-14 16:00] VITALS: BP 134/85; PULSE 76; RESP 18; TEMP 98.3; O2SAT 94
[2017-03-14 20:00] VITALS: BP 215/110; PULSE 78; RESP 20; TEMP 98.2; O2SAT 95
[2017-03-14] MEDS: DONEPEZIL HCL 5 MG TAB PO SCH (20:46)
[2017-03-14 22:00] VITALS: BP 181/84; PULSE 75; RESP 18; O2SAT 94
[2017-03-14] MEDS: ENALAPRILAT 1.25 MG/ML VIAL IV PUSH PRN (23:52)
[2017-03-15] VITALS: BP 183/92; PULSE 79; RESP 18; TEMP 98.7; O2SAT 94
[2017-03-15 00:03] VITALS: BP 160/83
[2017-03-15] MEDS: D5-1/2 NS + KCL 20 MEQ INJ 1,000 ML IV SCH ×2 (04:00→21:46)
[2017-03-15] MEDS: CIPROFLOXACIN 400 MG PREMIX 200 ML IV SCH ×2 (04:00→14:54)
[2017-03-15] MEDS: MORPHINE SULFATE 4 MG/ML INJ IV PRN ×4 (04:23→17:01)
[2017-03-15 08:00] VITALS: BP 180/83; PULSE 60; RESP 20; TEMP 97.9; O2SAT 93
[2017-03-15 08:09] LABS: INTERNATIONAL NORMALIZED RATIO 2.3 RATIO; PROTHROMBIN TIME - PATIENT 26.8 SEC (9.8-11.6)
[2017-03-15] MEDS: metroNIDAZOLE 500 MG INJ 100 ML IV SCH ×3 (08:39→23:03)
[2017-03-15] MEDS: SODIUM CHLORIDE 0.9% FLUSH 10 ML FLUSH IV FLUSH SCH ×2 (08:39→21:00)
[2017-03-15] MEDS: SERTRALINE HCL 50 MG TAB PO SCH ×2 (08:40→21:46)
[2017-03-15] MEDS: MEMANTINE HCL 5 MG TAB PO SCH (08:40)
[2017-03-15] MEDS: amLODIPine BESYLATE 5 MG TAB PO SCH ×2 (08:40→21:46)
[2017-03-15] MEDS: LISINOPRIL 20 MG TAB PO SCH ×2 (08:40→21:45)
[2017-03-15 11:26] LABS: AUTOMATED NEUTROPHIL # 12.6 TH/MM3 (1.8-7.7); BASOPHIL % 0.1 % (0.0-2.0); EOSINOPHIL % 0.3 % (0.0-4.0); HEMATOCRIT 34.9 % (35.0-46.0); HEMO FLAGS DIFF FINAL; LYMPH % 6.1 % (9.0-44.0); LYMPHOCYTE # 0.9 TH/MM3 (1.0-4.8); MEAN CELL VOLUME 81.1 FL (80.0-100.0); MEAN CORPUSCULAR HEMOGLOBIN 26.7 PG (27.0-34.0); MONO % 5.1 % (0.0-8.0); NEUT % 88.4 % (16.0-70.0); PLATELET COUNT 190 TH/MM3 (150-450); RED BLOOD COUNT 4.31 MIL/MM3 (4.00-5.30); RED CELL DISTRIBUTION WIDTH 19.3 % (11.6-17.2); WHITE BLOOD COUNT 14.2 TH/MM3 (4.0-11.0)
--- NOTE | 2017-03-15 11:51 | HHI.PR ---
Subjective Remarks Patient still abdominal pain especially with palpation, patient's nothing by mouth still organized allow clear liquid if tolerated No fever or chills, no bowel movement INR dropped back to 2.3 today we'll resume Coumadin at a lower dose 3 mg and have pharmacy follow Objective Vitals Vital Signs Date Time Temp Pulse Resp B/P Pulse Ox O2 Delivery O2 Flow Rate FiO2 03/15/17 09:14 18 03/15/17 08:00 97.9 60 20 180/83 93 03/15/17 00:03 160/83 03/15/17 00:00 98.7 79 18 183/92 94 03/14/17 22:00 75 18 181/84 94 03/14/17 20:00 98.2 78 20 215/110 95 03/14/17 16:00 98.3 76 18 134/85 94 I/O 03/14/17 03/14/17 03/14/17 03/15/17 03/15/17 03/15/17 07:00 15:00 23:00 07:00 15:00 23:00 Intake Total 0 ml 180 ml 1293 ml 445 ml Output Total 75 ml 200 ml Balance 0 ml -75 ml -20 ml 1293 ml 445 ml Intake Oral 0 ml 180 ml 20 ml IV Total 1293 ml 425 ml Output Urine Total 75 ml 200 ml # Voids 3 1 2 # Bowel Movements 1 0 Result Diagram: 03/15/17 0748 03/14/17 0545 Objective Remarks - GENERAL: This is a well-nourished, well-developed patient, in moderate distress due to abdominal pain SKIN: No rashes, warm and dry HEAD: Atraumatic. Normocephalic. EYES: Pupils equal round and reactive. Extraocular motions intact. No scleral icterus. ENT: Nose without bleeding, or drainage, Airway patent. NECK: Trachea midline. Supple CARDIOVASCULAR: Regular rate and rhythm without murmurs, gallops, or rubs. RESPIRATORY: Fair air entry bilaterally. No wheezes, rales, or rhonchi. GASTROINTESTINAL: Abdomen soft, fractionating still operator, nondistended. Positive bowel sounds MUSCULOSKELETAL: Extremities without clubbing, cyanosis, or edema. Pedal pulses appreciated NEUROLOGICAL: Awake and alert. Moves all extremity. Normal speech.no focal neurological deficit A/P Assessment and Plan 76 years old female admitted with acute abdominal pain with loose stool, CT abdomen showed diverticulosis with diverticulitis Sepsis (at admission tachycardia heart rate 93, leukocytosis 22K, bandemia 93%, hypothermia 97.6F) C due to diverticulitis Diverticulosis with acute diverticulitis Leukocytosis with left shift> improved 24,000-18,000>1400 Uncontrolled hypertension> improved Supratherapeutic INR 5.2> increased to 14 > 2.3 today Hypokalemia 2.9> improved with replacement UTI without dysuria H/O coronary artery disease/[place]/stenting and CABG History of CVA A. fib on Coumadin History of dementia, DVT prophylaxis patient on Coumadin INR therapeutic Plan: WBC decreased to 14,000 Will allow clear liquid if tolerated and monitor improvement INR 2.3 resume Coumadin at a lower dose 3 mg and consult pharmacy O2, morphine for pain control, nothing by mouth except meds, iv fluid with close monitoring for sign of overload Started on one dose of Rocephin then Cipro and Flagyl iv will continue on this Follow blood culture Stool for C. difficile, ova parasite WBC CBC BMP monitoring Resume lisinopril and amlodipine, Vasotec iv as needed to control blood pressure Continue Coumadin with INR monitoring Discharge Planning When clinically improved Samanta Herron MD March 15, 2017 11:51
[2017-03-15 12:00] VITALS: BP 170/90; PULSE 71; RESP 20; TEMP 97.9; O2SAT 96
[2017-03-15 16:00] VITALS: BP 200/100; PULSE 81; RESP 20; TEMP 97.6; O2SAT 96
[2017-03-15] MEDS: WARFARIN SOD 3 MG TAB PO SCH (17:01)
[2017-03-15 20:00] VITALS: BP 162/76; PULSE 78; RESP 20; TEMP 97.9; O2SAT 98
[2017-03-15] MEDS: DONEPEZIL HCL 5 MG TAB PO SCH (21:46)
[2017-03-15] MEDS: MORPHINE SULFATE 4 MG/ML INJ IV PUSH PRN (23:01)
[2017-03-16] VITALS: BP 166/90; PULSE 77; RESP 20; TEMP 99; O2SAT 94
[2017-03-16] MEDS: CIPROFLOXACIN 400 MG PREMIX 200 ML IV SCH ×2 (02:44→16:41)
[2017-03-16 04:00] VITALS: BP 188/108; PULSE 76; RESP 20; TEMP 98.1; O2SAT 97
[2017-03-16] MEDS: MORPHINE SULFATE 4 MG/ML INJ IV PRN ×4 (06:52→21:49)
[2017-03-16 07:12] LABS: INTERNATIONAL NORMALIZED RATIO 1.4 RATIO; PROTHROMBIN TIME - PATIENT 15.6 SEC (9.8-11.6)
[2017-03-16 08:00] VITALS: BP 188/93; PULSE 83; RESP 16; TEMP 98; O2SAT 95
[2017-03-16] MEDS: metroNIDAZOLE 500 MG INJ 100 ML IV SCH (08:54)
[2017-03-16] MEDS: amLODIPine BESYLATE 5 MG TAB PO SCH (08:54)
[2017-03-16] MEDS: LISINOPRIL 20 MG TAB PO SCH ×2 (08:55→21:02)
[2017-03-16] MEDS: SODIUM CHLORIDE 0.9% FLUSH 10 ML FLUSH IV FLUSH SCH ×2 (08:55→21:02)
[2017-03-16] MEDS: SERTRALINE HCL 50 MG TAB PO SCH ×2 (08:55→21:01)
[2017-03-16] MEDS: D5-1/2 NS + KCL 20 MEQ INJ 1,000 ML IV SCH (08:56)
[2017-03-16] MEDS: MEMANTINE HCL 5 MG TAB PO SCH (08:56)
[2017-03-16 11:07] LABS: POTASSIUM 3.3 MEQ/L (3.5-5.1)
[2017-03-16 11:11] LABS: BICARBONATE 25.6 MEQ/L (21.0-32.0); MAGNESIUM 1.7 MG/DL (1.5-2.5)
[2017-03-16] MEDS: ENALAPRILAT 1.25 MG/ML VIAL IV PUSH PRN (11:15)
[2017-03-16 11:32] LABS: C. DIFF EPI 027 PRESUMPTIVE NEGATIVE (NEGATIVE); C. DIFF TOXIN PCR POSITIVE (NEGATIVE)
[2017-03-16 11:51] VITALS: BP 198/100; PULSE 84; RESP 20; TEMP 98.3; O2SAT 96
[2017-03-16] MEDS ORDERED: COUM3TAB PO (12:41)
[2017-03-16] MEDS ORDERED: METR-1 PO (12:41)
[2017-03-16] MEDS ORDERED: AMLO5 PO (12:41)
[2017-03-16] MEDS ORDERED: amLODIPine BESYLATE 5 MG TAB PO ONE (12:45)
[2017-03-16] MEDS: metroNIDAZOLE 500 MG TAB PO SCH ×3 (13:00→21:48)
[2017-03-16 16:00] VITALS: BP 140/78; PULSE 76; RESP 20; TEMP 97.5; O2SAT 97
[2017-03-16] MEDS: WARFARIN SOD 3 MG TAB PO SCH (16:40)
--- NOTE | 2017-03-16 17:57 | HHI.PR ---
Subjective Remarks Patient seen and examined later this morning She was afebrile overnight, abdominal Pain is less today, she still on liquid diet Stool for C. difficile came back positive even though patient does not have significant diarrhea Pressure significantly elevated with the patient at risk reading was 188/93 today Objective Vitals Vital Signs Date Time Temp Pulse Resp B/P Pulse Ox O2 Delivery O2 Flow Rate FiO2 03/16/17 16:48 18 03/16/17 16:00 97.5 76 20 140/78 97 03/16/17 11:51 98.3 84 20 198/100 96 03/16/17 08:00 98.0 83 16 188/93 95 03/16/17 04:00 98.1 76 20 188/108 97 03/16/17 00:00 99.0 77 20 166/90 94 Automatic Cuff 03/15/17 23:06 18 03/15/17 20:00 97.9 78 20 162/76 98 I/O 03/15/17 03/15/17 03/15/17 03/16/17 03/16/17 03/16/17 07:00 15:00 23:00 07:00 15:00 23:00 Intake Total 1293 ml 445 ml 120 ml 620 ml Output Total 450 ml Balance 1293 ml 445 ml 120 ml 170 ml Intake Oral 20 ml 120 ml 620 ml IV Total 1293 ml 425 ml Output Urine Total 450 ml # Voids 6 2 1 # Bowel Movements 0 1 Result Diagram: 03/15/17 0748 03/16/17 0615 Objective Remarks - GENERAL: This is a well-nourished, well-developed patient, in moderate distress due to abdominal pain SKIN: No rashes, warm and dry HEAD: Atraumatic. Normocephalic. EYES: Pupils equal round and reactive. Extraocular motions intact. No scleral icterus. ENT: Nose without bleeding, or drainage, Airway patent. NECK: Trachea midline. Supple CARDIOVASCULAR: Regular rate and rhythm without murmurs, gallops, or rubs. RESPIRATORY: Fair air entry bilaterally. No wheezes, rales, or rhonchi. GASTROINTESTINAL: Abdomen soft, much less tender today, nondistended. Positive bowel sounds MUSCULOSKELETAL: Extremities without clubbing, cyanosis, or edema. Pedal pulses appreciated NEUROLOGICAL: Awake and alert. Moves all extremity. Normal speech.no focal neurological deficit A/P Assessment and Plan 76 years old female admitted with acute abdominal pain with loose stool, CT abdomen showed diverticulosis with diverticulitis Sepsis (at admission tachycardia heart rate 93, leukocytosis 22K, bandemia 93%, hypothermia 97.6F) C due to diverticulitis Diverticulosis with acute diverticulitis C. difficile infection Accelerated hypertension 188/93 Leukocytosis with left shift> improved Uncontrolled hypertension> improved Supratherapeutic INR 5.2> increased to 14 > 2.3 -1.4 today> continue Coumadin at 3 mg repeat in a.m. Hypokalemia 2.9> improved with replacement UTI without dysuria H/O coronary artery disease/[place]/stenting and CABG History of CVA A. fib on Coumadin History of dementia, DVT prophylaxis patient on Coumadin INR therapeutic Plan: I increased Norvasc to 10 mg I gave 5 early [place] on top of the first 5 mg given this morning, also clonidine by mouth when necessary, will closely monitor blood pressure I also nurse to check it manually, will add hydralazine if needed High blood pressure will place patient other risk of stroke Positive stool for C. difficile> change Flagyl to by mouth, continue Cipro for diverticulitis Abdominal pain most likely due to diverticulitis, will continue monitoring until clinically improved and able to tolerate regular diet, her stool is firm as per the patient once this is all stable she can go home on Flagyl Advance diet as tolerated INR 1.4 continue Coumadin at a lower dose 3 mg , pharmacy following BMP, mag and phosphorus O2, morphine for pain control, nothing by mouth except meds, iv fluid with close monitoring for sign of overload Started on one dose of Rocephin then Cipro and Flagyl iv will continue on this Follow blood culture Pending stool for ova parasite WBC CBC BMP monitoring Resume lisinopril and amlodipine, Vasotec iv as needed to control blood pressure Continue Coumadin with INR monitoring Discharge Planning When clinically improved Samanta Herron MD March 16, 2017 17:56
[2017-03-16 20:00] VITALS: BP 161/93; PULSE 78; RESP 18; TEMP 98.7; O2SAT 94
[2017-03-16] MEDS: DONEPEZIL HCL 5 MG TAB PO SCH (21:01)
[2017-03-17] VITALS: BP 170/92; PULSE 95; RESP 20; TEMP 98.2; O2SAT 95
[2017-03-17] MEDS: ENALAPRILAT 1.25 MG/ML VIAL IV PUSH PRN (00:54)
[2017-03-17] MEDS: D5-1/2 NS + KCL 20 MEQ INJ 1,000 ML IV SCH (00:57)
[2017-03-17] MEDS: CIPROFLOXACIN 400 MG PREMIX 200 ML IV SCH (03:00)
[2017-03-17] MEDS: metroNIDAZOLE 500 MG TAB PO SCH (04:27)
[2017-03-17 07:46] LABS: INTERNATIONAL NORMALIZED RATIO 1.3 RATIO
[2017-03-17] MEDS: SERTRALINE HCL 50 MG TAB PO SCH (08:18)
[2017-03-17] MEDS: SODIUM CHLORIDE 0.9% FLUSH 10 ML FLUSH IV FLUSH SCH (08:18)
[2017-03-17] MEDS: LISINOPRIL 20 MG TAB PO SCH (08:18)
[2017-03-17] MEDS: MEMANTINE HCL 5 MG TAB PO SCH (08:18)
[2017-03-17] MEDS: MORPHINE SULFATE 4 MG/ML INJ IV PUSH PRN (08:30)
[2017-03-17] MEDS ORDERED: amLODIPine BESYLATE 5 MG TAB PO SCH (09:00)
[2017-03-17 09:02] VITALS: BP 182/91; PULSE 87; RESP 18; TEMP 97.6; O2SAT 97
--- NOTE | 2017-03-17 12:51 | HHI.FF ---
Face to Face Verification Diagnosis: (1) Acute diverticulitis (2) Impaired gait Physical Therapy Order: Evaluate and Treat Home Health Nursing Order: Medication education-adverse effect Instructions: Follow INR (on Coumadin) I have seen patient Isaura Mcdonald on 03/17/17. My clinical findings support the need for the requested home health care services because: Deconditioned w/ increased weakness Limited ability to care for self High risk of falls I certify that my clinical findings support that this patient is homebound because: Unsteady gait/balance Unsafe to leave home unassisted Navid Lewis MD March 17, 2017 12:51 pm
--- NOTE | 2017-03-17 14:05 | HHI.DS ---
Discharge Summary Admission Date March 13, 2017 at 2:48 pm Discharge Date: March 17, 2017 Admitting Diagnosis acute diverticulitis, hypokalemia, intractable abdominal pain (1) Acute diverticulitis ICD Code: K57.92 Diagnosis: Principal (2) Impaired gait ICD Code: R26.9 Diagnosis: Secondary Procedures none Brief History - From Admission 76 years old female with past medical history of diverticulitis A. 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 No chest pain short of breath no sore throat no nasal congestion. Patient told me she had an episode of diverticulitis in the past. No history of CHF no edema orthopnea or PND. I discussed with the ED physician patient was given a dose of Cipro and Flagyl, she was also found to have a positive UA but she did not complain of dysuria CBC/BMP: 03/15/17 0748 03/16/17 0615 Significant Findings Laboratory Tests Test 03/15/17 03/16/17 03/16/17 03/17/17 07:48 06:15 06:30 06:15 White Blood Count 14.2 TH/MM3 (4.0-11.0) Hemoglobin 11.5 GM/DL (11.6-15.3) Hematocrit 34.9 % (35.0-46.0) Mean Corpuscular Hemoglobin 26.7 PG (27.0-34.0) Red Cell Distribution Width 19.3 % (11.6-17.2) Neutrophils (%) (Auto) 88.4 % (16.0-70.0) Lymphocytes (%) (Auto) 6.1 % (9.0-44.0) Neutrophils # (Auto) 12.6 TH/MM3 (1.8-7.7) Lymphocytes # (Auto) 0.9 TH/MM3 (1.0-4.8) Prothrombin Time 26.8 SEC 15.6 SEC 14.0 SEC (9.8-11.6) (9.8-11.6) (9.8-11.6) Potassium Level 3.3 MEQ/L (3.5-5.1) Blood Urea Nitrogen 5 MG/DL (7-18) Random Glucose 112 MG/DL (74-106) Phosphorus Level 2.0 MG/DL (2.5-4.9) Stool C. difficile Toxin (PCR) POSITIVE (NEGATIVE) Imaging Last Impressions Abdomen/Pelvis CT 03/13/17 1245 Signed Impressions: Service Date/Time: Monday, March 13, 2017 14:06 - CONCLUSION: 1. Diverticulosis of the sigmoid colon with wall thickening suggestive of mild diverticulitis. 2. Cholelithiasis. 3. No renal calculi or hydronephrosis. Ivan Lucas MD PE at Discharge - GENERAL: This is a well-nourished, well-developed patient, in moderate distress due to abdominal pain SKIN: No rashes, warm and dry HEAD: Atraumatic. Normocephalic. EYES: Pupils equal round and reactive. Extraocular motions intact. No scleral icterus. ENT: Nose without bleeding, or drainage, Airway patent. NECK: Trachea midline. Supple CARDIOVASCULAR: Regular rate and rhythm without murmurs, gallops, or rubs. RESPIRATORY: Fair air entry bilaterally. No wheezes, rales, or rhonchi. GASTROINTESTINAL: Abdomen soft, much less tender today, nondistended. Positive bowel sounds MUSCULOSKELETAL: Extremities without clubbing, cyanosis, or edema. Pedal pulses appreciated NEUROLOGICAL: Awake and alert. Moves all extremity. Normal speech.no focal neurological deficit Hospital Course Mrs. Mcdonald is a 76 year old female. She was admitted with acute diverticulitis and with treatment she has responded well. At baseline she has some ambulatory deficit and this has been exacerbated by her illness. She is improving with PT and today is medically stable for discharge to home on oral treatments and with home PT. She is on Coumadin chronically related to CAD and A-fib. No complaints today. Patient is eager to discharge today. Medically stable for discharge to home. Pt Condition on Discharge: Stable Discharge Disposition: Disch w/ Home Health Serv Discharge Time: <= 30 minutes Discharge Instructions DIET: Follow Instructions for: As Tolerated, No Restrictions Activities you can perform: Regular-No Restrictions Follow up Referrals: PCP Follow-up - 2 Weeks New Orders: PT/INR - Next Day New Medications: Amlodipine (Norvasc) 5 Mg Tab 10 MG PO DAILY htn #30 TAB Metronidazole (Flagyl) 500 Mg Tab 500 MG PO Q6HR C. difficile #56 TAB Warfarin (Coumadin) 3 Mg Tab 3 MG PO DAILY@16 anticoagulation #30 TAB Continued Medications: Calcium Carbonate-Cholecalciferol (Calcium 500 +D) 500-400 Mg-Unit Tab 1 TAB PO BID Calcium Supplement Ref 0 TAB Cholecalciferol (D3) 2,000 Unit Cap 1 CAP PO DAILY Cyanocobalamin (B12) 1,000 Mcg Tab Unknown Dose PO DAILY Donepezil (Aricept) 10 Mg Tab 10 MG PO HS Dementia #30 Ref 0 TAB Lisinopril (Lisinopril) 20 Mg Tab 20 MG PO BID #30 Ref 0 TAB Memantine (Memantine) 10 Mg Tab 5 MG PO DAILY Alzheimer's Dementia Ref 0 TAB Multiple Vitamin (Multiple Vitamin) 1 Tab 1 TAB PO DAILY Nutritional Supplement Ref 0 TAB Omeprazole (Omeprazole) 20 Mg Tab 20 MG PO DAILY #30 Ref 0 TAB Sertraline (Zoloft) 50 Mg Tab 50 MG PO BID #30 Ref 0 TAB Navid Lewis MD March 17, 2017 2:05 pm
[2017-03-17] MEDS ORDERED: ZOFR4TAB3 SL (17:43)
[2017-03-17] MEDS ORDERED: NORC5TAB PO (17:43)
== END 2017-03-17 12:03 | disposition home or self-care (01) | DRG 872 ==
LOC: PHED 11:45 → PHEDA 14:46 → OBSVTOIN 14:48 → PH3A 18:05
PROVIDERS: ADMIT Hospitalist; ATTEND Hospitalist
DX: A41.9 Sepsis, unspecified organism (principal); A04.7 Enterocolitis due to Clostridium difficile; K57.32 Diverticulitis of large intestine without perforation or abscess without bleeding; F03.90 Unspecified dementia, unspecified severity, without behavioral disturbance, psychotic disturbance, mood disturbance, and anxiety; I48.91 Unspecified atrial fibrillation; Z79.01 Long term (current) use of anticoagulants; N39.0 Urinary tract infection, site not specified; I10 Essential (primary) hypertension; E87.6 Hypokalemia; I25.10 Atherosclerotic heart disease of native coronary artery without angina pectoris; Z95.1 Presence of aortocoronary bypass graft; I25.2 Old myocardial infarction; Z95.5 Presence of coronary angioplasty implant and graft; Z86.73 Personal history of transient ischemic attack (TIA), and cerebral infarction without residual deficits; R26.9 Unspecified abnormalities of gait and mobility; R79.1 Abnormal coagulation profile
CPT/HCPCS: 74176; 76937; 80048; 80053; 80076; 81001; 83605; 83690; 83735; 84100; 85014; 85018; 85025; 85610; 85730; 87040; 87077; 87086; 87186; 87205; 87328; 87329; 87493; 87506; 96361; 96365; 96375; 99204; G0463; J0696; J0744; J2270; J2405; J3430; J3480; J7030; P9612

== ENCOUNTER 2017-03-17 16:54 | Emergency (ER) | payer MEDICARE ==
[~2017-03-17] VITALS: Ht 167.6 cm; Wt 66.0 kg
[~2017-03-17 16:54] MED LIST changes: +AMLO5 PO; +COUM3TAB PO; -COUM5TAB PO; +METR-1 PO; +WARF-23 PO
[2017-03-17 16:59] VITALS: BP 142/92; PULSE 98; RESP 16; TEMP 98.3; O2SAT 97
[2017-03-17] MEDS ORDERED: ZOFR4TAB3 SL (17:43)
[2017-03-17] MEDS ORDERED: NORC5TAB PO (17:43)
--- NOTE | 2017-03-17 17:43 | PD ---
HPI Chief Complaint: Back/ Neck Pain or Injury Time Seen by Provider: 17:17 Travel History International Travel<30 days: No Contact w/Intl Traveler<30days: No Traveled to known affect area: No History of Present Illness HPI 76-year-old female complains of low back pain and feeling shaky. Patient states that she has history of chronic back pain status post back surgery in the past. Patient states that she has progressively worsening of the back pain for the past 8 weeks. Patient was taking hydrocodone for pain. Patient ran out of pain medication. Patient was admitted to [facility] March 13 and discharged March 17 for acute diverticulitis, hypokalemia and abdominal pain. Patient was receiving morphine IV 4 times a day for back pain and abdominal pain. Patient feeling much better this morning and was discharged home. Patient however does not have any hydrocodone at home for back pain. Patient return requesting pain medication and states that she probably withdrawal from the morphine. Patient denies any headache. Patient denies any chest pain or shortness of breath. Patient denies abdominal pain. Patient denies any focal weakness or numbness of extremity. Patient denies any recent back injury. On a scale of 1-10 the pain is a 10. Patient states that she has nausea taking pain medication including hydrocodone however she can tolerate hydrocodone for pain. PFSH Past Medical History Hx Anticoagulant Therapy: Yes Arthritis: Yes Asthma: No Atrial Fibrillation: Yes Autoimmune Disease: No Blood Disorders: No Anxiety: Yes Depression: Yes Heart Rhythm Problems: Yes (OCCASIONAL PALPITATIONS AFIB) Cancer: No Cardiac Catheterization: Yes Cardiovascular Problems: Yes (htn on meds, [place] with 3 stents) High Cholesterol: Yes Chest Pain: Yes Congestive Heart Failure: No COPD: No Cerebrovascular Accident: Yes Coronary Artery Disease: Yes Diabetes: No Diminished Hearing: No Endocrine: No Gastrointestinal Disorders: Yes (barretts esophagus) GERD: Yes Glaucoma: No Genitourinary: No Headaches: Yes Hepatitis: No Hiatal Hernia: Yes Herniated Disk: Yes Hypertension: Yes Immune Disorder: No Kidney Stones: No Musculoskeletal: Yes (CHRONIC BACK PAIN ) Neurologic: No Psychiatric: Yes Reproductive: No Respiratory: No Immunizations Current: Yes Myocardial Infarction: Yes (DC 09/1991) Renal Failure: No Seizures: No Sleep Apnea: Yes (OCCASIONAL) Thyroid Disease: No Ulcer: No Influenza Vaccination: Yes ?: Not Menopausal: Yes : 3 Para: 3 Past Surgical History Abdominal Surgery: Yes AICD: No Appendectomy: Yes Body Medical Devices: cardiac stents Cardiac Surgery: Yes (bypass, 3 STENTS) Cholecystectomy: No Coronary Artery Bypass Graft: Yes (X1 1990) Coronary Stent: Yes (X 3) Ear Surgery: No Endocrine Surgery: No Eye Surgery: Yes (CATARACT ) Genitourinary Surgery: No Gynecologic Surgery: No Joint Replacement: Yes (BILATERAL KNEE/hip) Neurologic Surgery: Yes (L1-L2 SURGERY ) Oral Surgery: No Pacemaker: No Thoracic Surgery: No Tonsillectomy: Yes Other Surgery: Yes Social History Alcohol Use: No Tobacco Use: No Substance Use: No Allergies-Medications (Allergen,Severity, Reaction): Coded Allergies: Contrast Media (Verified Allergy, Severe, HIVES ,CLOSE UP THROAT, 03/13/17) Hydrocodone (Verified Allergy, Severe, N/V, 03/13/17) Iohexol (OMNIPAQUE) (Verified Allergy, Severe, pt needs premeds, 03/13/17) Percocet (Verified Allergy, Severe, 03/13/17) Sulfa (Verified Allergy, Severe, CHILLS-ABD PAIN, 03/13/17) Vicodin (Verified Allergy, Severe, N/V, 03/13/17) Reported Meds & Prescriptions Reported Meds & Active Scripts Active Flagyl (Metronidazole) 500 Mg Tab 500 Mg PO Q6HR Norvasc (Amlodipine Besylate) 5 Mg Tab 10 Mg PO DAILY Reported Warfarin 5 Mg Tab 5 Mg PO DAILY D3 (Cholecalciferol) 2,000 Unit Cap 1 Cap PO DAILY B12 (Cyanocobalamin) 1,000 Mcg Tab Unknown Dose PO DAILY Memantine 10 Mg Tab 5 Mg PO DAILY Aricept (Donepezil) 10 Mg Tab 10 Mg PO HS Amlodipine (Amlodipine Besylate) 2.5 Mg Tab 5 Mg PO BID Calcium 500 +D (Calcium Carbonate-Cholecalciferol) 500-400 Mg-Unit Tab 1 Tab PO BID Lisinopril 20 Mg Tab 20 Mg PO BID Primidone 50 Mg Tab 50 Mg PO BID Omeprazole 20 Mg Tab 20 Mg PO DAILY Zoloft (Sertraline HCl) 50 Mg Tab 50 Mg PO BID Multiple Vitamin 1 Tab 1 Tab PO DAILY Review of Systems General / Constitutional: No: Fever Eyes: No: Visual changes HENT: No: Headaches Cardiovascular: No: Chest Pain or Discomfort Respiratory: No: Shortness of Breath Gastrointestinal: No: Abdominal Pain Genitourinary: No: Dysuria Musculoskeletal: No: Pain Skin: No Rash Neurologic: No: Weakness Psychiatric: No: Depression Endocrine: No: Polydipsia Hematologic/Lymphatic: No: Easy Bruising Physical Exam Narrative GENERAL: Well-nourished, well-developed patient. SKIN: Focused skin assessment warm/dry. HEAD: Normocephalic. EYES: No scleral icterus. No injection or drainage. NECK: Supple, trachea midline. No JVD or lymphadenopathy. CARDIOVASCULAR: Regular rate and rhythm without murmurs, gallops, or rubs. RESPIRATORY: Breath sounds equal bilaterally. No accessory muscle use. GASTROINTESTINAL: Abdomen soft, nondistended. Patient has mild diffuse tenderness over the abdomen. No rebound tenderness. No mass. MUSCULOSKELETAL: No cyanosis, or edema. BACK: Patient has moderate tenderness on palpation lumbar area, without obvious deformity. No CVA tenderness. Neurologic exam normal. Data Data Last Documented VS Vital Signs Date Time Temp Pulse Resp B/P Pulse Ox O2 Delivery O2 Flow Rate FiO2 03/17/17 17:14 Room Air 03/17/17 16:59 98.3 98 16 142/92 97 Orders Morphine Inj (Morphine Inj) (03/17/17 17:45) Ondansetron Odt (Zofran Odt) (03/17/17 17:45) MDM Medical Decision Making Medical Screen Exam Complete: Yes Emergency Medical Condition: Yes Medical Record Reviewed: Yes Differential Diagnosis Differential diagnosis including acute exacerbation of back pain. Narrative Course 76-year-old female with complains of low back pain. History of chronic recurrent back pain. Status post back surgery in the past. Morphine 2 mg IM. Zofran 4 mg ODT. Diagnosis Primary Impression: Acute exacerbation of chronic low back pain Patient Instructions: General Instructions Additional Instructions: Hydrocodone as needed for pain. Zofran as needed for nausea. Follow-up with orthopedist and personal physician. Return if worse. Med/Other Pt SpecificInfo: Prescription(s) given Scripts Ondansetron Odt (Zofran Odt)4 Mg Tab4 Mg SL Q6HR PRN (Nausea/Vomiting) #20 TAB Prov:Juventino Decker MD 03/17/17 Hydrocodone-Acetaminophen ([place])5-325 mg Tab1 Tab PO Q6H PRN (PAIN) #30 TAB Prov:Juventino Decker MD 03/17/17 Disposition: 01 DISCHARGE HOME Condition: Stable Juventino Decker MD March 17, 2017 17:43
[2017-03-17] MEDS ORDERED: ONDANSETRON ODT 4 MG TAB PO ONE (17:45)
[2017-03-17] MEDS ORDERED: MORPHINE SULFATE 4 MG/ML INJ IM ONE (17:45)
== END 2017-03-17 18:18 | disposition home or self-care (01) ==
LOC: PHED 16:54
DX: M54.5 Low back pain (principal); G89.29 Other chronic pain; I48.91 Unspecified atrial fibrillation; I10 Essential (primary) hypertension; I25.10 Atherosclerotic heart disease of native coronary artery without angina pectoris; I25.2 Old myocardial infarction; Z95.5 Presence of coronary angioplasty implant and graft; Z79.01 Long term (current) use of anticoagulants
CPT/HCPCS: 96372; 99283; J2270

== ENCOUNTER 2017-05-28 12:19 | Emergency (ER) | payer MEDICARE ==
[~2017-05-28] VITALS: Ht 167.6 cm; Wt 66.0 kg
[~2017-05-28 12:19] MED LIST changes: -COUM3TAB PO; +NORC5TAB PO; +ZOFR4TAB3 SL
[2017-05-28 12:20] VITALS: BP 187/109; PULSE 97; RESP 18; TEMP 99; O2SAT 96
--- NOTE | 2017-05-28 12:43 | PD ---
HPI Chief Complaint: Pain: Acute or Chronic Time Seen by Provider: 12:21 Travel History International Travel<30 days: No Contact w/Intl Traveler<30days: No Traveled to known affect area: No History of Present Illness HPI 76-year-old female here with complaint of right hip pain. Patient states she was ambulating at home with her walker, walks with walker at baseline. She had sudden onset of right sided hip pain. She did not have any falls. States that she was unable to ambulate further, stopped and her home health aide called [phone]. Patient states that she has a history of chronic problems with her hips, arthritis. She denies a previous hip arthroplasty but has had bilateral knee arthroplasty. States the pain is worse with bearing weight and moving, she does not have any pain at this time. PFSH Past Medical History Hx Anticoagulant Therapy: Yes Arthritis: Yes Asthma: No Atrial Fibrillation: Yes Autoimmune Disease: No Blood Disorders: No Anxiety: Yes Depression: Yes Heart Rhythm Problems: Yes (AF) Cancer: No Cardiac Catheterization: Yes Cardiovascular Problems: Yes (htn on meds, [place] with 3 stents) High Cholesterol: Yes Chest Pain: Yes Congestive Heart Failure: No COPD: No Cerebrovascular Accident: Yes Coronary Artery Disease: Yes Diabetes: No Diminished Hearing: No Endocrine: No Gastrointestinal Disorders: Yes (Albert's ) GERD: Yes Glaucoma: No Genitourinary: No Headaches: Yes Hepatitis: No Hiatal Hernia: Yes Herniated Disk: Yes Hypertension: Yes Immune Disorder: No Kidney Stones: No Musculoskeletal: Yes (Chronic back pain ) Neurologic: No Psychiatric: Yes Reproductive: No Respiratory: No Immunizations Current: Yes Myocardial Infarction: Yes (1990) Renal Failure: No Seizures: No Sleep Apnea: Yes Thyroid Disease: No Ulcer: No Tetanus Vaccination: < 5 Years Influenza Vaccination: Yes ?: Not Menopausal: Yes : 3 Para: 3 Past Surgical History Abdominal Surgery: Yes AICD: No Appendectomy: Yes Body Medical Devices: Cardiac stents, BL knees replaced Cardiac Surgery: Yes (bypass, 3 STENTS) Cholecystectomy: No Coronary Artery Bypass Graft: Yes (X's , 1989) Coronary Stent: Yes (X's 3) Ear Surgery: No Endocrine Surgery: No Eye Surgery: Yes (Cataract) Genitourinary Surgery: No Gynecologic Surgery: No Joint Replacement: Yes (BL knees) Neurologic Surgery: Yes (L1-L2) Oral Surgery: No Pacemaker: No Thoracic Surgery: No Tonsillectomy: Yes Other Surgery: Yes Social History Alcohol Use: No Tobacco Use: No Substance Use: No Allergies-Medications (Allergen,Severity, Reaction): Coded Allergies: Contrast Media (Verified Allergy, Severe, HIVES ,CLOSE UP THROAT, 05/28/17) Hydrocodone (Verified Allergy, Severe, N/V, 05/28/17) Iohexol (OMNIPAQUE) (Verified Allergy, Severe, pt needs premeds, 05/28/17) Percocet (Verified Allergy, Severe, 05/28/17) Sulfa (Verified Allergy, Severe, CHILLS-ABD PAIN, 05/28/17) Vicodin (Verified Allergy, Severe, N/V, 05/28/17) Reported Meds & Prescriptions Reported Meds & Active Scripts Active Reported Warfarin 5 Mg Tab 5 Mg PO DAILY D3 (Cholecalciferol) 2,000 Unit Cap 1 Cap PO DAILY B12 (Cyanocobalamin) 1,000 Mcg Tab Unknown Dose PO DAILY Memantine 10 Mg Tab 5 Mg PO DAILY Aricept (Donepezil) 10 Mg Tab 10 Mg PO HS Amlodipine (Amlodipine Besylate) 2.5 Mg Tab 5 Mg PO BID Calcium 500 +D (Calcium Carbonate-Cholecalciferol) 500-400 Mg-Unit Tab 1 Tab PO BID Lisinopril 20 Mg Tab 20 Mg PO BID Primidone 50 Mg Tab 50 Mg PO BID Omeprazole 20 Mg Tab 20 Mg PO DAILY Zoloft (Sertraline HCl) 50 Mg Tab 50 Mg PO BID Multiple Vitamin 1 Tab 1 Tab PO DAILY Review of Systems Except as stated in HPI: all other systems reviewed are Neg Physical Exam Narrative GENERAL: Elderly female in no acute distress SKIN: Focused skin assessment warm/dry. HEAD: Normocephalic. EYES: No scleral icterus. No injection or drainage. ENT: No nasal bleeding or discharge. Mucous membranes pink and moist. NECK: Trachea midline. No JVD. CARDIOVASCULAR: Regular rate and rhythm. No murmur appreciated. RESPIRATORY: No accessory muscle use. Clear to auscultation. Breath sounds equal bilaterally. GASTROINTESTINAL: Abdomen soft, non-tender, nondistended. MUSCULOSKELETAL: Pelvis stable AP and lateral compression. Patient has pain over the greater trochanter region of the right hip. No pain in the groin/ inguinal region. Distal sensation and pulses are intact. Range of motion of the right hip reproduces pain particularly with flexion and external rotation. Patient denied hip arthroplasty but on exam she has scars bilaterally consistent with previous hip arthroplasty. NEUROLOGICAL: Awake and alert. Normal speech. PSYCHIATRIC: Appropriate mood and affect; insight and judgment normal. Data Data Last Documented VS Vital Signs Date Time Temp Pulse Resp B/P Pulse Ox O2 Delivery O2 Flow Rate FiO2 05/28/17 12:20 99.0 97 18 187/109 96 Orders Hip, Uni(Ap&Lat) W Ap Pelvis (05/28/17 12:21) MDM Medical Decision Making Medical Screen Exam Complete: Yes Emergency Medical Condition: Yes Medical Record Reviewed: Yes Differential Diagnosis 76-year-old female with history of chronic hip arthritis here with sudden onset right sided hip pain while ambulating. No fall/trauma. Differential includes dislocation, fracture, pathologic fracture, acute on chronic osteoarthritis, trochanteric bursitis. Narrative Course X-rays of the pelvis and right hip showed no acute abnormalities. Patient was able ambulate with her walker without any difficulty. Patient will be discharged home. Diagnosis Primary Impression: Right hip pain Referrals: Primary Care Physician as needed Additional Instructions: Follow-up with primary care provider if symptoms persist. Med/Other Pt SpecificInfo: No Change to Meds Disposition: 01 DISCHARGE HOME Condition: Stable Alissa Boston MD May 28, 2017 12:43
--- NOTE | 2017-05-28 12:49 | RADRPT ---
EXAM DATE/TIME: 05/28/2017 12:25 [facility] COMPARISON: No previous studies available for comparison. INDICATIONS : Right hip pain with no known injury MEDICAL HISTORY : Osteoarthritis. Osteoporosis. SURGICAL HISTORY : Kyphoplasty. Bilateral hip replacement ENCOUNTER: Initial ACUITY: 1 day PAIN SCORE: 10/10 LOCATION: Right hip FINDINGS: Status post bilateral total hip arthroplasties severe osteopenia without fracture. Alignment anatomi c. CONCLUSION: Anatomic alignment without fracture. Lucas Moe MD FACR on May 28, 2017 at 12:47 Board Certified Radiologist. This report was verified electronically.
[2017-05-28 14:18] VITALS: BP 176/87; PULSE 78; RESP 16; O2SAT 97
== END 2017-05-28 15:18 | disposition home or self-care (01) ==
LOC: PHED 12:19
DX: M25.551 Pain in right hip (principal); I10 Essential (primary) hypertension; E78.00 Pure hypercholesterolemia, unspecified; G47.30 Sleep apnea, unspecified; I25.2 Old myocardial infarction; Z79.01 Long term (current) use of anticoagulants; Z96.653 Presence of artificial knee joint, bilateral; Z87.39 Personal history of other diseases of the musculoskeletal system and connective tissue; Z86.79 Personal history of other diseases of the circulatory system; Z86.59 Personal history of other mental and behavioral disorders; Z87.19 Personal history of other diseases of the digestive system
CPT/HCPCS: 73502; 99283

== ENCOUNTER 2017-05-30 10:46 | Emergency (ER) | payer MEDICARE ==
[~2017-05-30] VITALS: Ht 167.6 cm; Wt 67.0 kg
[~2017-05-30 10:46] MED LIST changes: -AMLO5 PO; -METR-1 PO; -NORC5TAB PO; -ZOFR4TAB3 SL
[2017-05-30 10:57] VITALS: BP 139/79; PULSE 91; RESP 20; TEMP 97.9; O2SAT 97
[2017-05-30] MEDS ORDERED: SODIUM CHLORIDE 0.9% FLUSH 5 ML FLUSH IV FLUSH PRN (11:30)
--- NOTE | 2017-05-30 11:36 | PD ---
HPI Chief Complaint: Neuro Symptoms/ Deficits Time Seen by Provider: 11:19 Travel History International Travel<30 days: No Contact w/Intl Traveler<30days: No Traveled to known affect area: No History of Present Illness HPI This patient came to the ER for evaluation because she says she's felt confused for the last week. She does complain of headache. She denies head injury. She is on Coumadin for A. fib. She denies sensory loss or a specific muscle group weakness or any change in speech pattern. She complains of generalized weakness. She does have history of CVA in 2010 per her report. She ambulates with a walker at home, having recently completed a stint at rehabilitation. Denies fever. Severity of symptoms is moderate. No alleviating factors. PFSH Past Medical History Hx Anticoagulant Therapy: Yes (WARFARIN AND ELIQUIS) Arthritis: Yes Asthma: No Atrial Fibrillation: Yes Autoimmune Disease: No Blood Disorders: No Anxiety: Yes Depression: Yes Heart Rhythm Problems: Yes (AF) Cancer: No Cardiac Catheterization: Yes Cardiovascular Problems: Yes High Cholesterol: Yes Chest Pain: Yes Congestive Heart Failure: No COPD: No Cerebrovascular Accident: Yes (IN AND THREE STENTS ) Coronary Artery Disease: Yes Diabetes: No Diminished Hearing: No Endocrine: No Gastrointestinal Disorders: Yes (Albert's ) GERD: Yes Glaucoma: No Genitourinary: No Headaches: Yes Hepatitis: No Hiatal Hernia: Yes Herniated Disk: Yes Hypertension: Yes Immune Disorder: No Kidney Stones: No Musculoskeletal: Yes (Chronic back pain ) Neurologic: No Psychiatric: Yes Reproductive: No Respiratory: No Immunizations Current: Yes Myocardial Infarction: Yes (1990) Renal Failure: No Seizures: No Sleep Apnea: Yes Thyroid Disease: No Ulcer: No Menopausal: Yes : 3 Para: 3 Past Surgical History Abdominal Surgery: Yes AICD: No Appendectomy: Yes Body Medical Devices: Cardiac stents, BL knees replaced Cardiac Surgery: Yes (bypass, 3 STENTS) Cholecystectomy: No Coronary Artery Bypass Graft: Yes (X's , 1989) Coronary Stent: Yes (X's ) Ear Surgery: No Endocrine Surgery: No Eye Surgery: Yes (Cataract) Genitourinary Surgery: No Gynecologic Surgery: No Joint Replacement: Yes (BL knees) Neurologic Surgery: Yes (L1-L2) Oral Surgery: No Pacemaker: No Thoracic Surgery: No Tonsillectomy: Yes Other Surgery: Yes Social History Alcohol Use: No Tobacco Use: No Substance Use: No Allergies-Medications (Allergen,Severity, Reaction): Coded Allergies: Contrast Media (Verified Allergy, Severe, HIVES ,CLOSE UP THROAT, 05/30/17) Hydrocodone (Verified Allergy, Severe, N/V, 05/30/17) Iohexol (OMNIPAQUE) (Verified Allergy, Severe, pt needs premeds, 05/30/17) Percocet (Verified Allergy, Severe, 05/30/17) Sulfa (Verified Allergy, Severe, CHILLS-ABD PAIN, 05/30/17) Vicodin (Verified Allergy, Severe, N/V, 05/30/17) Reported Meds & Prescriptions Reported Meds & Active Scripts Active Reported Warfarin 5 Mg Tab 5 Mg PO DAILY D3 (Cholecalciferol) 2,000 Unit Cap 1 Cap PO DAILY B12 (Cyanocobalamin) 1,000 Mcg Tab Unknown Dose PO DAILY Memantine 10 Mg Tab 5 Mg PO DAILY Aricept (Donepezil) 10 Mg Tab 10 Mg PO HS Amlodipine (Amlodipine Besylate) 2.5 Mg Tab 5 Mg PO BID Calcium 500 +D (Calcium Carbonate-Cholecalciferol) 500-400 Mg-Unit Tab 1 Tab PO BID Lisinopril 20 Mg Tab 20 Mg PO BID Primidone 50 Mg Tab 50 Mg PO BID Omeprazole 20 Mg Tab 20 Mg PO DAILY Zoloft (Sertraline HCl) 50 Mg Tab 50 Mg PO BID Multiple Vitamin 1 Tab 1 Tab PO DAILY Review of Systems General / Constitutional: No: Fever Eyes: No: Visual changes HENT: Positive: Headaches (oh will) Cardiovascular: Positive: Irregular Rhythm, No: Chest Pain or Discomfort Respiratory: No: Shortness of Breath Gastrointestinal: No: Abdominal Pain Genitourinary: No: Dysuria Musculoskeletal: Positive: Weakness, No: Pain Skin: No Rash Neurologic: Positive: Weakness, Headache, Change in Mentation Psychiatric: No: Depression Endocrine: No: Polydipsia Hematologic/Lymphatic: No: Easy Bruising Physical Exam Narrative GENERAL: Well-nourished, well-developed patient in no apparent distress. SKIN: Focused skin assessment reveals no rash and nodules. Skin is Warm and dry. HEAD: Atraumatic. Normocephalic. EYES: Pupils equal and round. No scleral icterus. No injection or drainage. ENT: No nasal bleeding or discharge. Mucous membranes pink and moist. NECK: Trachea midline. No JVD. CARDIOVASCULAR: Regular rate and rhythm. No murmur appreciated. RESPIRATORY: No accessory muscle use. Clear to auscultation. Breath sounds equal bilaterally. GASTROINTESTINAL: Abdomen soft, non-tender, nondistended. Hepatic and splenic margins not palpable. MUSCULOSKELETAL: No obvious deformities. No clubbing. No cyanosis. No edema. NEUROLOGICAL: Awake and alert. No obvious cranial nerve deficits. Motor grossly within normal limits. I don't see any obvious asymmetry. Understandable speech. No facial droop. PSYCHIATRIC: Appropriate mood and affect; insight and judgment seem fairly reasonable. Data Data Last Documented VS Vital Signs Date Time Temp Pulse Resp B/P Pulse Ox O2 Delivery O2 Flow Rate FiO2 05/30/17 12:07 99 Room Air 05/30/17 10:57 97.9 91 20 139/79 Orders Electrocardiogram (05/30/17 11:27) Basic Metabolic Panel (Bmp) (05/30/17 11:27) Complete Blood Count With Diff (05/30/17 11:27) Prothrombin Time / Inr (Pt) (05/30/17 11:27) Thyroid Stimulating Hormone (05/30/17 11:27) Urinalysis - C+S If Indicated (05/30/17 11:27) Ct Brain W/O Iv Contrast(Rout) (05/30/17 11:27) Ecg Monitoring (05/30/17 11:27) Iv Access Insert/Monitor (05/30/17 11:27) Cath For Specimen (05/30/17 11:27) Oximetry (05/30/17 11:27) Sodium Chloride 0.9% Flush (Ns Flush) (05/30/17 11:30) Protein Corrected Calcium(Pcc) (05/30/17 11:30) Urine Culture (05/30/17 12:45) Potassium Bicarb Eff (Effer-K Eff) (05/30/17 13:45) Labs Laboratory Tests Test 05/30/17 05/30/17 11:30 12:45 White Blood Count 8.6 TH/MM3 Red Blood Count 4.20 MIL/MM3 Hemoglobin 11.8 GM/DL Hematocrit 35.8 % Mean Corpuscular Volume 85.3 FL Mean Corpuscular Hemoglobin 28.2 PG Mean Corpuscular Hemoglobin 33.0 % Concent Red Cell Distribution Width 17.2 % Platelet Count 222 TH/MM3 Mean Platelet Volume 9.0 FL Neutrophils (%) (Auto) 79.7 % Lymphocytes (%) (Auto) 11.4 % Monocytes (%) (Auto) 7.5 % Eosinophils (%) (Auto) 1.0 % Basophils (%) (Auto) 0.4 % Neutrophils # (Auto) 6.8 TH/MM3 Lymphocytes # (Auto) 1.0 TH/MM3 Monocytes # (Auto) 0.6 TH/MM3 Eosinophils # (Auto) 0.1 TH/MM3 Basophils # (Auto) 0.0 TH/MM3 CBC Comment DIFF FINAL Differential Comment Prothrombin Time 12.4 SEC Prothromb Time International 1.1 RATIO Ratio Sodium Level 139 MEQ/L Potassium Level 2.8 MEQ/L Chloride Level 108 MEQ/L Carbon Dioxide Level 22.4 MEQ/L Anion Gap 9 MEQ/L Blood Urea Nitrogen 12 MG/DL Creatinine 0.49 MG/DL Estimat Glomerular Filtration 122 ML/MIN Rate Random Glucose 87 MG/DL Calcium Level 7.3 MG/DL Protein Corrected Calcium 8.0 MG/DL Total Protein 5.8 GM/DL Thyroid Stimulating Hormone 1.350 uIU/ML 3rd Gen Urine Color YELLOW Urine Turbidity HAZY Urine pH 6.5 Urine Specific [place] 1.011 Urine Protein NEG mg/dL Urine Glucose (UA) NEG mg/dL Urine Ketones NEG mg/dL Urine Occult Blood NEG Urine Nitrite POS Urine Bilirubin NEG Urine Urobilinogen LESS THAN 2.0 MG/DL Urine Leukocyte Esterase MOD Urine RBC 1 /hpf Urine WBC 5 /hpf Urine WBC Clumps OCC Urine Squamous Epithelial 1 /hpf Cells Urine Bacteria MANY /hpf Microscopic Urinalysis Comment CATH-CULTURE IND [facility] Medical Decision Making Medical Screen Exam Complete: Yes Emergency Medical Condition: Yes Medical Record Reviewed: Yes Differential Diagnosis Intracranial hemorrhage, electrolyte abnormality, UTI Narrative Course I have reviewed the patient's electronic medical record. IV placed CBC is normal Metabolic profile shows hypokalemia of 2.8. I gave her 50 mEq here and another 50 mEq dose to take on prescription Catheterized urine does not show significant infection TSH is normal Brain CT shows some old chronic ischemic type changes but nothing acute INR on Coumadin is 1.1. She says she is compliant so she must have to lower dose and she is to talk to her doctor about this tomorrow. She will take a double dose of her Coumadin today I reviewed her EKG which shows A. fib but rate controlled Extended cardiac monitoring reveals A. fib without tachycardia On exam patient does not have any neurologic deficit to suggest acute stroke. She's had mild confusion reported for one week but she doesn't seem confused now. She is stable for outpatient follow-up. Her is there for the discussion. Diagnosis Primary Impression: Altered mental status, unspecified Additional Impressions: Generalized weakness Hypokalemia Additional Instructions: The patient was advised to follow up with their physician and return if they worsen. Discuss Coumadin level with your physician tomorrow Take a double dose of Coumadin tonight Med/Other Pt SpecificInfo: Prescription(s) given Scripts Potassium Bicarbonate Effervescent (K-Vescent)25 Meq Tab50 Meq PO ONCE #2 TAB Ref 0 Prov:Oliver Vega MD 05/30/17 Disposition: 01 DISCHARGE HOME Condition: Stable Oliver Vega MD May 30, 2017 11:36
[2017-05-30 12:03] LABS: AUTOMATED NEUTROPHIL # 6.8 TH/MM3 (1.8-7.7); BASOPHIL % 0.4 % (0.0-2.0); EOSINOPHIL # 0.1 TH/MM3 (0-0.4); HEMATOCRIT 35.8 % (35.0-46.0); HEMO FLAGS DIFF FINAL; LYMPH % 11.4 % (9.0-44.0); MEAN CELL VOLUME 85.3 FL (80.0-100.0); MEAN CORPUSCULAR HEMOGLOBIN 28.2 PG (27.0-34.0); MONO % 7.5 % (0.0-8.0); NEUT % 79.7 % (16.0-70.0); PLATELET COUNT 222 TH/MM3 (150-450); RED CELL DISTRIBUTION WIDTH 17.2 % (11.6-17.2); WHITE BLOOD COUNT 8.6 TH/MM3 (4.0-11.0)
[2017-05-30 12:07] VITALS: O2SAT 99
[2017-05-30 12:10] LABS: INTERNATIONAL NORMALIZED RATIO 1.1 RATIO
[2017-05-30 12:17] LABS: PROTHROMBIN TIME - PATIENT 12.4 SEC (9.8-11.6)
--- NOTE | 2017-05-30 12:34 | RADRPT ---
EXAM DATE/TIME: 05/30/2017 11:51 [facility] COMPARISON: CT BRAIN W/O CONTRAST, April 29, 2016, 17:31. INDICATIONS : Cephalgia; right arm weakness. RADIATION DOSE: 56.35 CTDIvol (mGy) MEDICAL HISTORY : Stroke. Hypertension. Cardiovascular disease SURGICAL HISTORY : Cholecystectomy. CABG ENCOUNTER: Initial ACUITY: 1 day PAIN SCALE: 4/10 LOCATION: Cranial TECHNIQUE: Multiple contiguous axial images were obtained of the head. Using automated exposure control and adj ustment of the mA and/or kV according to patient size, radiation dose was kept as low as reasonably a chievable to obtain optimal diagnostic quality images. DICOM format image data is available electro nically for review and comparison. FINDINGS: Severe periventricular and subcortical white matter small vessel ischemic changes are noted bilateral ly. There are old lacunar infarcts within the bilateral basal ganglia. Diffuse cerebral atrophy is stable. There is no acute infarct, acute hemorrhage, mass effect or extraaxial fluid collections. O pacification of the right ethmoid air cells is noted. CONCLUSION: 1. Severe periventricular and subcortical white matter small vessel ischemic changes bilaterally. 2. Diffuse cerebral atrophy. 3. Old lacunar infarcts within the bilateral basal ganglia. 4. No acute infarct, acute hemorrhage, mass effect or extraaxial fluid collections. 5. Chronic opacification of the right ethmoid air cells. Miki Johnson MD on May 30, 2017 at 12:20 Board Certified Radiologist. This report was verified electronically.
[2017-05-30 12:48] LABS: BICARBONATE 22.4 MEQ/L (21.0-32.0)
[2017-05-30 12:54] LABS: POTASSIUM 2.8 MEQ/L (3.5-5.1)
[2017-05-30 13:18] LABS: BACTERIA, URINE MANY /hpf; BLOOD, URINE NEG (NEG); GLUCOSE,URINE NEG (NEG); KETONE, URINE NEG (NEG); PH, URINE 6.5 (5.0-8.5); SQUAMOUS EPITHELIAL CELL URINE 1 /hpf (0-5); URINE COLOR YELLOW (YELLW/STRAW)
[2017-05-30 13:20] LABS: COMMENT (UR) CATH-CULTURE IND; CULTURE IF INDICATED CATH CULTURE IND; NITRITE,URINE POS (NEG)
[2017-05-30] MEDS ORDERED: KLORCONEF PO (13:44)
[2017-05-30] MEDS ORDERED: POTASSIUM BICARBONATE 25 MEQ EFFERVESCENT TAB PO ONE (13:45)
--- NOTE | 2017-05-30 14:39 | EKG ---
Date Performed: 05/30/2017 Time Performed: 10:57:33 PTAGE: 76 years EKG: ATRIAL FIBRILLATION Poor initial anterior forces V1 and V2, which may be normal variant, ca nnot exclude previous septal ND Compared to prior tracing no significant change ABNORMAL ECG WARNING: DATA QUALITY MAY AFFECT INTERPRETATION NO PREVIOUS TRACING DOCTOR: Ramon Schmidt Interpretating Date/Time 05/30/2017 14:37:54
== END 2017-05-30 14:25 | disposition home or self-care (01) ==
LOC: NEPC 10:46
DX: R41.82 Altered mental status, unspecified (principal); R53.1 Weakness; E87.6 Hypokalemia; I48.91 Unspecified atrial fibrillation; N39.0 Urinary tract infection, site not specified; B96.1 Klebsiella pneumoniae [K. pneumoniae] as the cause of diseases classified elsewhere; B96.89 Other specified bacterial agents as the cause of diseases classified elsewhere; Z79.01 Long term (current) use of anticoagulants
CPT/HCPCS: 70450; 80048; 81001; 84155; 84443; 85025; 85610; 87077; 87086; 87186; 93005; 99285; P9612

== ENCOUNTER 2017-06-01 13:39 | Emergency (ER) | payer MEDICARE ==
[~2017-06-01] VITALS: Ht 167.6 cm; Wt 65.0 kg
[~2017-06-01 13:39] MED LIST changes: +KLORCONEF PO
[2017-06-01 13:52] VITALS: BP 142/74; PULSE 92; RESP 18; TEMP 98.6; O2SAT 97
[2017-06-01] MEDS ORDERED: SODIUM CHLORIDE 0.9% FLUSH 10 ML FLUSH IV FLUSH PRN (14:00)
[2017-06-01] MEDS ORDERED: SODIUM CHLORID 0.9% 500 ML INJ 500 ML IV ONE (14:00)
--- NOTE | 2017-06-01 14:08 | PD ---
HPI Chief Complaint: GI Complaint Time Seen by Provider: 13:49 Travel History International Travel<30 days: No Contact w/Intl Traveler<30days: No Traveled to known affect area: No History of Present Illness HPI Patient is a 76-year-old female presents emergency department for evaluation of diarrhea. Patient states she's been having diarrhea for 2 weeks been feeling weak for the past few months. She states that she wants to go to a skilled nursing because her has had a stroke and cannot take care of her anymore. Patient states her diarrhea is just liquidy denies any blood in the stool or dark stool. Denies any abdominal pain. Denies any fevers. Review of her records that show that she has a history of C. difficile in the past. Denies any recent antibiotics. PFSH Past Medical History Hx Anticoagulant Therapy: Yes (WARFARIN AND ELIQUIS) Arthritis: Yes Asthma: No Atrial Fibrillation: Yes Autoimmune Disease: No Blood Disorders: No Anxiety: Yes Depression: Yes Heart Rhythm Problems: Yes (AF) Cancer: No Cardiac Catheterization: Yes Cardiovascular Problems: Yes High Cholesterol: Yes Chest Pain: Yes Congestive Heart Failure: No COPD: No Cerebrovascular Accident: Yes (AL AND THREE STENTS ) Coronary Artery Disease: Yes Diabetes: No Diminished Hearing: No Endocrine: No Gastrointestinal Disorders: Yes (Albert's ) GERD: Yes Glaucoma: No Genitourinary: No Headaches: Yes Hepatitis: No Hiatal Hernia: Yes Herniated Disk: Yes Hypertension: Yes Immune Disorder: No Kidney Stones: No Musculoskeletal: Yes (Chronic back pain ) Neurologic: No Psychiatric: Yes Reproductive: No Respiratory: No Immunizations Current: Yes Myocardial Infarction: Yes (1990) Renal Failure: No Seizures: No Sleep Apnea: Yes Thyroid Disease: No Ulcer: No Tetanus Vaccination: < 5 Years Menopausal: Yes : 3 Para: 3 Past Surgical History Abdominal Surgery: Yes AICD: No Appendectomy: Yes Body Medical Devices: Cardiac stents, BL knees replaced Cardiac Surgery: Yes (bypass, 3 STENTS) Cholecystectomy: No Coronary Artery Bypass Graft: Yes (X's , 1989) Coronary Stent: Yes (X's 3) Ear Surgery: No Endocrine Surgery: No Eye Surgery: Yes (Cataract) Genitourinary Surgery: No Gynecologic Surgery: No Joint Replacement: Yes (BL knees) Neurologic Surgery: Yes (L1-L2) Oral Surgery: No Pacemaker: No Thoracic Surgery: No Tonsillectomy: Yes Other Surgery: Yes Social History Alcohol Use: No Tobacco Use: No Substance Use: No Allergies-Medications (Allergen,Severity, Reaction): Coded Allergies: Contrast Media (Verified Allergy, Severe, HIVES ,CLOSE UP THROAT, 06/01/17) Hydrocodone (Verified Allergy, Severe, N/V, 06/01/17) Iohexol (OMNIPAQUE) (Verified Allergy, Severe, pt needs premeds, 06/01/17) Percocet (Verified Allergy, Severe, 06/01/17) Sulfa (Verified Allergy, Severe, CHILLS-ABD PAIN, 06/01/17) Vicodin (Verified Allergy, Severe, N/V, 06/01/17) Reported Meds & Prescriptions Reported Meds & Active Scripts Active Flagyl (Metronidazole) 500 Mg Tab 500 Mg PO BID 14 Days Ciprofloxacin (Ciprofloxacin HCl) 500 Mg Tab 500 Mg PO BID 7 Days Klonopin (Clonazepam) 0.5 Mg Tab 0.5 Mg PO TID PRN 40 Days Reported Namenda (Memantine) 5 Mg Tab 5 Mg PO DAILY Amlodipine (Amlodipine Besylate) 5 Mg Tab 5 Mg PO BID Calcium (Oyster Shell) 500 Mg Tab 500 Mg PO BID Warfarin 5 Mg Tab 5 Mg PO DAILY D3 (Cholecalciferol) 2,000 Unit Cap 2,000 Units PO DAILY B12 (Cyanocobalamin) Unknown Strength Tab 1 Tab PO DAILY Lisinopril 20 Mg Tab 20 Mg PO BID Primidone 50 Mg Tab 50 Mg PO BID Omeprazole 20 Mg Tab 20 Mg PO DAILY Zoloft (Sertraline HCl) 50 Mg Tab 50 Mg PO BID Multiple Vitamin 1 Tab 1 Tab PO DAILY Review of Systems Except as stated in HPI: all other systems reviewed are Neg Physical Exam Narrative GENERAL: Well-developed well-nourished no obvious distress. SKIN: Focused skin assessment warm/dry. HEAD: Atraumatic. Normocephalic. EYES: Pupils equal and round. No scleral icterus. No injection or drainage. ENT: No nasal bleeding or discharge. Mucous membranes pink and moist. NECK: Trachea midline. No JVD. CARDIOVASCULAR: Regular rate and rhythm. No murmur appreciated. RESPIRATORY: No accessory muscle use. Clear to auscultation. Breath sounds equal bilaterally. GASTROINTESTINAL: Abdomen soft, non-tender, nondistended. Hepatic and splenic margins not palpable. MUSCULOSKELETAL: No obvious deformities. No clubbing. No cyanosis. No edema. NEUROLOGICAL: Awake and alert. No obvious cranial nerve deficits. Motor grossly within normal limits. Normal speech. PSYCHIATRIC: Appropriate mood and affect; insight and judgment normal. Data Data Last Documented VS Vital Signs Date Time Temp Pulse Resp B/P Pulse Ox O2 Delivery O2 Flow Rate FiO2 06/01/17 19:04 80 16 139/68 99 06/01/17 14:31 Room Air 06/01/17 13:52 98.6 Orders Complete Blood Count With Diff (06/01/17 14:00) Comprehensive Metabolic Panel (06/01/17 14:00) Lipase (06/01/17 14:00) Prothrombin Time / Inr (Pt) (06/01/17 14:00) Act Partial Throm Time (Ptt) (06/01/17 14:00) Urinalysis - C+S If Indicated (06/01/17 14:00) Iv Access Insert/Monitor (06/01/17 14:00) Ecg Monitoring (06/01/17 14:00) Oximetry (06/01/17 14:00) Sodium Chloride 0.9% Flush (Ns Flush) (06/01/17 14:00) Electrocardiogram (06/01/17 14:00) Sodium Chlorid 0.9% 500 Ml Inj (Ns 500 M (06/01/17 14:00) Troponin I (06/01/17 14:00) Chest, Single Ap (06/01/17 ) Urine Culture (06/01/17 15:50) Labs Laboratory Tests Test 06/01/17 06/01/17 15:50 16:15 Urine Color YELLOW Urine Turbidity HAZY Urine pH 6.0 Urine Specific [place] 1.011 Urine Protein 30 mg/dL Urine Glucose (UA) NEG mg/dL Urine Ketones NEG mg/dL Urine Occult Blood TRACE Urine Nitrite POS Urine Bilirubin NEG Urine Urobilinogen 0.2 MG/DL Urine Leukocyte Esterase SMALL Urine RBC 0-3 /hpf Urine WBC 9-14 /hpf Urine WBC Clumps OCC Urine Squamous Epithelial 6-8 /hpf Cells Urine Bacteria MOD /hpf Microscopic Urinalysis Comment CATH-CULTURE IND Prothrombin Time 14.0 SEC Prothromb Time International 1.3 RATIO Ratio Activated Partial 24.8 SEC Thromboplast Time Sodium Level 138 MEQ/L Potassium Level 3.7 MEQ/L Chloride Level 106 MEQ/L Carbon Dioxide Level 22.5 MEQ/L Anion Gap 10 MEQ/L Blood Urea Nitrogen 11 MG/DL Creatinine 0.59 MG/DL Estimat Glomerular Filtration 99 ML/MIN Rate Random Glucose 83 MG/DL Calcium Level 7.9 MG/DL Total Bilirubin 0.3 MG/DL Aspartate Amino Transf 21 U/L (AST/SGOT) Alanine Aminotransferase 11 U/L (ALT/SGPT) Alkaline Phosphatase 85 U/L Troponin I LESS THAN 0.02 NG/ML Total Protein 6.3 GM/DL Albumin 2.9 GM/DL Lipase 123 U/L White Blood Count 8.2 TH/MM3 Red Blood Count 3.18 MIL/MM3 Hemoglobin 9.1 GM/DL Hematocrit 27.3 % Mean Corpuscular Volume 86.1 FL Mean Corpuscular Hemoglobin 28.7 PG Mean Corpuscular Hemoglobin 33.4 % Concent Red Cell Distribution Width 17.2 % Platelet Count 158 TH/MM3 Mean Platelet Volume 9.3 FL Neutrophils (%) (Auto) 75.4 % Lymphocytes (%) (Auto) 15.0 % Monocytes (%) (Auto) 7.7 % Eosinophils (%) (Auto) 1.4 % Basophils (%) (Auto) 0.5 % Neutrophils # (Auto) 6.2 TH/MM3 Lymphocytes # (Auto) 1.2 TH/MM3 Monocytes # (Auto) 0.6 TH/MM3 Eosinophils # (Auto) 0.1 TH/MM3 Basophils # (Auto) 0.0 TH/MM3 CBC Comment DIFF FINAL Differential Comment MDM Medical Decision Making Medical Screen Exam Complete: Yes Emergency Medical Condition: Yes Differential Diagnosis C. difficile, infectious diarrhea, gastritis, gastroenteritis. Narrative Course Patient presents with diarrhea, weakness for the past month. Chief complaint actually included "i want to go to a skilled nursing". Patient initial labs negative. Will treat emperically with cipro/flagyl. Stable for discharge. While discharge planning, a facility called us and told us that they had a room for her and all paperwork already completed by her primary care physician. When informed of this the patient stated she now didn't want to go because we did it behind her back. Her arrives and she wants him to drive her to the skilled nursing. I had filled out a script for klonopin at skilled nursing's request as they though she was on it daily. I initially filled one out, but patient wavering i have shreded this script. She was discharged to and i informed her that if she did not go to the facility they may give away her bed. Diagnosis Primary Impression: UTI (urinary tract infection) Qualified Code: N30.00 - Acute cystitis without hematuria Additional Impression: Diarrhea Med/Other Pt SpecificInfo: Prescription(s) given Scripts Metronidazole (Flagyl)500 Mg [id number] Mg PO BID 14 Days Ref 0 Prov:Miki Robins MD 06/01/17 Ciprofloxacin 500 Mg [id number] Mg PO BID 7 Days Ref 0 Prov:Miki Robins MD 06/01/17 Clonazepam (Klonopin)0.5 Mg Tab0.5 Mg PO TID PRN (ANXIETY) 40 Days Ref 0 Prov:Miki Robins MD 06/01/17 Disposition: 01 DISCHARGE HOME Condition: Stable Miki Robins MD Jun 01, 2017 14:08
[2017-06-01] MEDS ORDERED: CALC500T35 PO (14:14)
[2017-06-01] MEDS ORDERED: NAME5TAB2 PO (14:14)
[2017-06-01] MEDS ORDERED: AMLO5TAB2 PO (14:14)
[2017-06-01 14:31] VITALS: O2SAT 97
--- NOTE | 2017-06-01 15:34 | RADRPT ---
EXAM DATE/TIME: 06/01/2017 14:16 [facility] COMPARISON: CHEST SINGLE AP, April 29, 2016, 20:24. INDICATIONS : Short of breath. MEDICAL HISTORY : Stroke. Hypertension. Cardiovascular disease SURGICAL HISTORY : CABG. Cholecystectomy. ENCOUNTER: Initial ACUITY: 1 day PAIN SCORE: 0/10 LOCATION: Bilateral chest FINDINGS: Portable AP view of the chest demonstrates a normal-sized cardiac silhouette with calcification of th e aorta. Patient is post median sternotomy and CABG. There is mild atelectasis at the lung bases. No pleural effusion, airspace consolidation, or pneumothorax is visualized. Bones and soft tissues demon strate no acute finding. CONCLUSION: Mild atelectasis at the lung bases. Otherwise, no acute cardiopulmonary abnormality is identified. Elpidio Cid MD on June 01, 2017 at 15:32 Board Certified Radiologist. This report was verified electronically.
[2017-06-01 15:54] VITALS: BP 144/85; PULSE 93; RESP 19; O2SAT 96
[2017-06-01 16:51] LABS: AUTOMATED NEUTROPHIL # 6.2 TH/MM3 (1.8-7.7); BASOPHIL % 0.5 % (0.0-2.0); EOSINOPHIL # 0.1 TH/MM3 (0-0.4); EOSINOPHIL % 1.4 % (0.0-4.0); HEMATOCRIT 27.3 % (35.0-46.0); HEMO FLAGS DIFF FINAL; LYMPHOCYTE # 1.2 TH/MM3 (1.0-4.8); MEAN CELL VOLUME 86.1 FL (80.0-100.0); MEAN CORPUSCULAR HEMOGLOBIN 28.7 PG (27.0-34.0); MEAN CORPUSCULAR HGB CONC 33.4 % (32.0-36.0); MONO % 7.7 % (0.0-8.0); NEUT % 75.4 % (16.0-70.0); PLATELET COUNT 158 TH/MM3 (150-450); RED BLOOD COUNT 3.18 MIL/MM3 (4.00-5.30); RED CELL DISTRIBUTION WIDTH 17.2 % (11.6-17.2); WHITE BLOOD COUNT 8.2 TH/MM3 (4.0-11.0)
[2017-06-01 17:03] LABS: INTERNATIONAL NORMALIZED RATIO 1.3 RATIO
[2017-06-01 17:04] LABS: APTT (PATIENT) 24.8 SEC (24.3-30.1)
[2017-06-01 17:22] LABS: GLUCOSE,URINE NEG (NEG); KETONE, URINE NEG (NEG); NITRITE,URINE POS (NEG); URINE COLOR YELLOW (YELLW/STRAW)
[2017-06-01] MEDS ORDERED: CLON.5 PO (17:25)
[2017-06-01 17:27] LABS: BLOOD, URINE TRACE (NEG)
[2017-06-01 17:28] LABS: BACTERIA, URINE MOD /hpf; RBC, URINE 0-3 /hpf (0-3)
[2017-06-01 17:30] LABS: COMMENT (UR) CATH-CULTURE IND; CULTURE IF INDICATED CATH CULTURE IND
[2017-06-01 17:51] LABS: ALKALINE PHOSPHATASE 85 U/L (45-117); ALT (GPT) 11 U/L (10-53); ANION GAP 10 MEQ/L (5-15); AST (GOT) 21 U/L (15-37); BICARBONATE 22.5 MEQ/L (21.0-32.0); BLOOD UREA NITROGEN 11 MG/DL (7-18); CHLORIDE 106 MEQ/L (98-107); GLOMERULAR FILTRATION RATE 99 ML/MIN (>89); POTASSIUM 3.7 MEQ/L (3.5-5.1); SODIUM (NA) 138 MEQ/L (136-145); TOTAL BILIRUBIN ADULT 0.3 MG/DL (0.2-1.0)
[2017-06-01] MEDS ORDERED: METR-1 PO (18:04)
[2017-06-01] MEDS ORDERED: CIPR500T2 PO (18:04)
[2017-06-01 19:04] VITALS: BP 139/68
--- NOTE | 2017-06-02 11:09 | EKG ---
Date Performed: 06/01/2017 Time Performed: 14:22:22 PTAGE: 76 years EKG: ATRIAL FIBRILLATION SEPTAL MYOCARDIAL INFARCTION ABNORMAL ECG PREVIOUS TRACING : 05/30/2017 10.57 DOCTOR: Juancarlos Lira Interpretating Date/Time 06/02/2017 11:08:42
== END 2017-06-01 19:15 | disposition home or self-care (01) ==
LOC: NEPC 14:00
DX: N30.00 Acute cystitis without hematuria (principal); R19.7 Diarrhea, unspecified; R53.1 Weakness; B96.1 Klebsiella pneumoniae [K. pneumoniae] as the cause of diseases classified elsewhere; R94.31 Abnormal electrocardiogram [ECG] [EKG]; I10 Essential (primary) hypertension; E78.00 Pure hypercholesterolemia, unspecified; G47.30 Sleep apnea, unspecified; I25.2 Old myocardial infarction; Z79.01 Long term (current) use of anticoagulants; Z87.39 Personal history of other diseases of the musculoskeletal system and connective tissue; Z86.79 Personal history of other diseases of the circulatory system; Z86.59 Personal history of other mental and behavioral disorders; Z87.19 Personal history of other diseases of the digestive system
CPT/HCPCS: 71010; 80053; 81001; 83690; 84484; 85025; 85610; 85730; 87077; 87086; 87186; 93005; 99285; J7040